=== PATIENT | female | born 1955 | race Caucasian/White ===

== ENCOUNTER 2016-09-29 11:06 | Inpatient (IN) | payer SELFPAY ==
[~2016-09-29] VITALS: Ht 167.6 cm; Wt 85.9 kg
[~2016-09-29 11:06] MED LIST: AMLO5TAB2 PO; GFNSR600 PO; HYDR5TAB27 PO; PRED20TA PO
[2016-09-29] MEDS ORDERED: DILTIAZEM BOLUS / DRIP IV STA ×2 (11:21→14:00)
[2016-09-29] MEDS ORDERED: DILTIAZEM HCL 5 MG/ML 5 ML VIAL ONE (11:26)
[2016-09-29] MEDS: DILTIAZEM HCL INJ 125 MG in DEXTROSE 5% 100ML IV PRN ×3 (11:44→19:30)
[2016-09-29] MEDS ORDERED: DILTIAZEM HCL 5 MG/ML 5 ML VIAL IV SCH (11:45)
[2016-09-29 11:53] LABS: BASO % 0.4 %; BASO ABS # 0.03 K/uL (0-0.2); COMPLETE YES; EOS % 0.9 %; HEMATOCRIT 49.3 % (37-47); IG% 0.2 %; LYMPH % 27.7 %; LYMPH ABS # 2.25 K/uL (1.2-3.4); MEAN CELL VOLUME 87.9 fL (80-100); MEAN CORPUSCULAR HEMOGLOBIN 29.8 pg (25-34); MEAN CORPUSCULAR HGB CONC 33.9 g/dl (32-36); MEAN PLATELET VOLUME 10.5 fL (7.4-10.4); NEUT % 62.8 %; PLATELET COUNT 351 K/uL (130-400); RED BLOOD COUNT 5.61 M/uL (4.2-5.4); WHITE BLOOD COUNT 8.11 K/uL (4.8-10.8)
--- NOTE | 2016-09-29 12:01 | DIAGNOSTIC IMAGING REPORT ---
CHEST ONE VIEW PORTABLE CLINICAL HISTORY: Evaluate Fever/Sepsis fever COMPARISON STUDY: 06/06/2012 FINDINGS: Mild cardiomegaly. Slight prominence of the pulmonary vasculature as well as central hilar shadows. No acute infiltrate. Diaphragms smooth. IMPRESSION: No acute process. Electronically signed by: Collin Beard M.D. 09/29/2016 12:00 PM Dictated Date/Time: 09/29/2016 11:59 AM
[2016-09-29 12:04] LABS: PARTIAL THROMBOPLASTIN RATIO 1.3; PROTHROMBIN TIME (PATIENT) 10.2 SECONDS (9.0-12.0)
[2016-09-29 12:09] LABS: ALT/SGPT 28 U/L (12-78); AST/SGOT 14 U/L (15-37); BLOOD UREA NITROGEN 14 mg/dl (7-18); BUN/CREATININE RATIO 16.1 (10-20); CALCIUM 9.2 mg/dl (8.5-10.1); CARBON DIOXIDE 25 mmol/L (21-32); CHLORIDE 106 mmol/L (98-107); CREATININE 0.85 mg/dl (0.60-1.20); GLUCOSE 101 mg/dl (70-99); POTASSIUM 4.1 mmol/L (3.5-5.1); SODIUM 139 mmol/L (136-145)
[2016-09-29 12:20] LABS: ALKALINE PHOSPHATASE 90 U/L (45-117); CKMB/CK RATIO 1.2 (0-3.0)
--- NOTE | 2016-09-29 13:41 | EMERGENCY ROOM VISIT NOTE ---
History Report prepared by Santoibletty: Wero Cheng Under the Supervision of: Dr. Rakesh Vo D.O. First contact with patient: 11:16 Chief Complaint: CARDIAC ASSESSMENT Stated Complaint: ELEVATED BLOOD PRESSURE History of Present Illness The patient is a 61 year old female who presents to the Emergency Room with complaints of persistent heart palpitations starting about 3 days ago. She states that she can "feel her heart beating." She also complains of feeling fatigued. She currently denies any pain. She denies any chest pain, shortness of breath, or any other complaints. The patient has a history of hypertension. She does not have a history of A-Fib. She does not smoke cigarettes or drink alcohol. Source of History: patient Onset: about 3 days ago Position: chest Symptom Intensity: No pain Quality: other (heart palpitations) Timing: other (persistent) Associated Symptoms: No chest pain, No SOB Review of Systems See HPI for pertinent positives & negatives. A total of 10 systems reviewed and were otherwise negative. Past Medical & Surgical Medical Problems: (1) Hypertension Surgical Problems: (1) H/O elbow surgery (2) History of Family History Hypertension Social History Smoking Status: Never Smoker Marital Status: Housing Status: lives with family Occupation Status: unemployed Current/Historical Medications Scheduled Amlodipine Besylate (Norvasc), 5 MG PO DAILY Allergies Coded Allergies: No Known Allergies (Unverified , 09/29/16) Physical Exam Vital Signs Date Time Temp Pulse Resp B/P (MAP) Pulse Ox O2 Delivery O2 Flow Rate FiO2 09/29/16 13:37 107 20 112/68 94 Room Air 09/29/16 13:21 115 20 118/82 95 Room Air 09/29/16 12:52 118 20 133/92 96 Room Air 09/29/16 12:44 114 30 132/77 95 09/29/16 12:35 122 16 117/89 96 Room Air 09/29/16 12:24 115 16 125/80 93 Room Air 09/29/16 12:16 122 19 111/92 95 Room Air 09/29/16 12:05 105 09/29/16 12:01 113 22 113/87 95 Room Air 09/29/16 11:58 120 25 124/97 96 Room Air 09/29/16 11:51 108 20 108/81 94 Room Air 09/29/16 11:47 115 21 119/85 95 Room Air 09/29/16 11:45 93 Room Air 09/29/16 11:45 95 18 116/91 93 Room Air 09/29/16 11:37 124 26 107/89 95 Room Air 09/29/16 11:35 93 Room Air 09/29/16 11:34 159 25 120/91 93 Room Air 09/29/16 11:09 36.5 73 20 151/96 98 Room Air Physical Exam CONSTITUTIONAL/VITAL SIGNS: Reviewed / noted above. GENERAL: Non-toxic in appearance. INTEGUMENTARY: Warm, dry, and [place]. HEAD: Normocephalic. EYES: without scleral icterus or trauma. ENT/OROPHARYNX: clear and moist. LYMPHADENOPATHY/NECK: Is supple without lymphadenopathy or meningismus. RESPIRATORY: Lungs clear and equal. CARDIOVASCULAR: Rapid rate and irregular rhythm. GI/ABDOMEN: Soft and nontender. No organomegaly or pulsatile mass. No rebound or guarding. Normal bowel sounds. EXTREMITIES: Warm and well perfused. BACK: No CVA tenderness. NEUROLOGICAL: Intact without focal deficits. PSYCHIATRIC: normal affect. MUSCULOSKELETAL: Normally developed with good muscle tone. Medical Decision & Procedures ER Provider Diagnostic Interpretation: X ray results and stated below per my interpretation and radiology interpretation. CHEST ONE VIEW PORTABLE CLINICAL HISTORY: Evaluate Fever/Sepsis fever COMPARISON STUDY: 06/06/2012 FINDINGS: Mild cardiomegaly. Slight prominence of the pulmonary vasculature as well as central hilar shadows. No acute infiltrate. Diaphragms smooth. IMPRESSION: No acute process. Electronically signed by: Collin Beard M.D. 09/29/2016 12:00 PM Dictated Date/Time: 09/29/2016 11:59 AM Laboratory Results 09/29/16 11:20 Red Blood Count 5.61, Mean Corpuscular Volume 87.9, Mean Corpuscular Hemoglobin 29.8, Mean Corpuscular Hemoglobin Concent 33.9, Mean Platelet Volume 10.5, Neutrophils (%) (Auto) 62.8, Lymphocytes (%) (Auto) 27.7, Monocytes (%) (Auto) 8.0, Eosinophils (%) (Auto) 0.9, Basophils (%) (Auto) 0.4, Neutrophils # (Auto) 5.09, Lymphocytes # (Auto) 2.25, Monocytes # (Auto) 0.65, Eosinophils # (Auto) 0.07, Basophils # (Auto) 0.03 09/29/16 11:20 Test 09/29/16 11:20 White Blood Count 8.11 K/uL (4.8-10.8) Red Blood Count 5.61 M/uL (4.2-5.4) Hemoglobin 16.7 g/dL (12.0-16.0) Hematocrit 49.3 % (37-47) Mean Corpuscular Volume 87.9 fL (80-100) Mean Corpuscular Hemoglobin 29.8 pg (25-34) Mean Corpuscular Hemoglobin Concent 33.9 g/dl (32-36) Platelet Count 351 K/uL (130-400) Mean Platelet Volume 10.5 fL (7.4-10.4) Neutrophils (%) (Auto) 62.8 % Lymphocytes (%) (Auto) 27.7 % Monocytes (%) (Auto) 8.0 % Eosinophils (%) (Auto) 0.9 % Basophils (%) (Auto) 0.4 % Neutrophils # (Auto) 5.09 K/uL (1.4-6.5) Lymphocytes # (Auto) 2.25 K/uL (1.2-3.4) Monocytes # (Auto) 0.65 K/uL (0.11-0.59) Eosinophils # (Auto) 0.07 K/uL (0-0.5) Basophils # (Auto) 0.03 K/uL (0-0.2) RDW Standard Deviation 43.7 fL (36.4-46.3) RDW Coefficient of Variation 13.5 % (11.5-14.5) Immature Granulocyte % (Auto) 0.2 % Immature Granulocyte # (Auto) 0.02 K/uL (0.00-0.02) Prothrombin Time 10.2 SECONDS (9.0-12.0) Prothromb Time International Ratio 1.0 (0.9-1.1) Activated Partial Thromboplast Time 32.7 SECONDS (21.0-31.0) Partial Thromboplastin Ratio 1.3 Anion Gap 8.0 mmol/L (3-11) Est Creatinine Clear Calc Drug Dose 80.1 ml/min Estimated GFR () 86.9 Estimated GFR (Non- 75.0 BUN/Creatinine Ratio 16.1 (10-20) Calcium Level 9.2 mg/dl (8.5-10.1) Total Bilirubin 0.6 mg/dl (0.2-1) Direct Bilirubin 0.1 mg/dl (0-0.2) Aspartate Amino Transf (AST/SGOT) 14 U/L (15-37) Alanine Aminotransferase (ALT/SGPT) 28 U/L (12-78) Alkaline Phosphatase 90 U/L (45-117) Total Creatine Kinase 43 U/L (26-192) Creatine Kinase MB 0.5 ng/ml (0.5-3.6) Creatine Kinase MB Ratio 1.2 (0-3.0) Troponin I < 0.015 ng/ml (0-0.045) Total Protein 8.0 gm/dl (6.4-8.2) Albumin 4.1 gm/dl (3.4-5.0) Lipase 200 U/L (73-393) Thyroid Stimulating Hormone (TSH) 1.360 uIu/ml (0.300-4.500) Medications Administered Medications (Trade) Dose Ordered Sig/Estelita Route Start Time Stop Time Status Last Admin Dose Admin Diltiazem HCl 125 mg/Dextrose 125 ml @ 0 mls/hr Q0M PRN IV 09/29/16 11:45 10/29/16 11:44 09/29/16 11:44 10 MLS/HR Diltiazem HCl (Cardizem Inj) 25 mg STK-MED ONCE .ROUTE 09/29/16 11:26 09/29/16 11:27 DC 09/29/16 11:26 20 MG ECG Indication: palpitations Rate (beats per minute): 156 Rhythm: atrial fibrillation Findings: no acute ischemic change, no ectopy ED Course 1116: Previous medical records were reviewed. The patient was evaluated in room C08. A complete history and physical examination was performed. 1145: Diltiazem HCl 125 mg/Dextrose 125 ml @ 0 mls/hr Protocol IV 1332: Heparin Sodium/Dextrose 1 ea N/A 1341: On reevaluation, the patient is resting comfortably. I discussed the results and findings with her. She verbalized agreement of the treatment plan. I spoke with JOSE Pineda of the [facility] Service. The patient will be evaluated for further management and care. Medical Decision Medication Reconciliation: I attest that I have personally reviewed the patient' s current medication list. the differential was considered includes acute myocardial infarction, acute coronary syndrome, myocarditis, pericarditis, pericardial effusions /tamponade, esophageal perforation, thoracic aortic dissection, pulmonary embolism, pneumonia, pneumothorax, pancreatitis, shingles, acute cholecystitis, perforated abdominal viscus. This is a 61-year-old female who presents to the ED with a chief complaint of palpitations. She states that she's had the symptoms for about 3 days. She denies any other significant symptoms. She does report being on a blood pressure pill that she cannot recall what it is. Her vital signs revealed tachycardia. Twelve-lead EKG reveals A. fib at a rate of 156. CBC and complete metabolic panel are normal, troponin is negative, TSH is normal. Chest x-ray is negative for acute disease. The patient was started on IV Cardizem drip and bolus. She was told the results. She is also been started on heparin drip and bolus. She'll be seen by the hospitalist for further evaluation and care. She denies any prior history of A. fib. Consults Time Called: 1335 Consulting Physician: [facility] Returned Call: 1341 I spoke with [facility]. Impression Primary Impression: Atrial fibrillation with rapid ventricular response Additional Impression: New onset a-fib Scribe Attestation The scribe's documentation has been prepared under my direction and personally reviewed by me in its entirety. I confirm that the note above accurately reflects all work, treatment, procedures, and medical decision making performed by me. Departure Information Dispostion Being Evaluated By Hospitalist Referrals Katiuska Vázquez M.D. (PCP) Patient Instructions My [facility] Problem Qualifiers
[2016-09-29] MEDS ORDERED: HEPARIN SOD 5000 UNIT/0.5 ML CARP ONE (13:49)
[2016-09-29] MEDS ORDERED: HEPARIN 25000 UNIT/500 ML D5W ONE (13:49)
[2016-09-29] MEDS ORDERED: ACETAMINOPHEN 325 MG TAB PO PRN (14:00)
[2016-09-29] MEDS ORDERED: ONDANSETRON INJ 2 MG/ML 2 ML VIAL IV PRN (14:00)
--- NOTE | 2016-09-29 14:14 | History and Physical ---
History & Physical Date & Time of Service: Sep 29, 2016 ~ 13:45 Chief Complaint: Palpitations Primary Care Physician: Katiuska Vázquez M.D. History of Present Illness 61 year old female who presents to the ER with reports of feeling her heart beating hard. Patient reports her symptoms have been going on for about 2 days. She reports she first noticed it when she was driving home from work. She reports symptoms have been persistent. She denies palpitations but reports rather a feeling of her heart beating hard. She denies chest pain and pressure. She noted some exertional shortness of breath when trying to climb stairs. She reports mild intermittent lightheadedness. She denies dizziness or syncopal events. No diaphoresis or nausea. Reports she has been feeling well recently. No fevers or chills. She denies abdominal pain, vomiting, and diarrhea. No urinary symptoms. In the ER, patient was found to be in a fib with RVR with rates in the 150s. Patient was bolused with 20mg IV cardizem and placed on a drip with improvement in heart rate. She was also started on Heparin drip. Labs are unremarkable. Past Medical/Surgical History Medical Problems: (1) Hypertension Status: Chronic Surgical Problems: (1) H/O elbow surgery Status: Resolved (2) History of Status: Resolved (3) History of tonsillectomy and adenoidectomy Status: Chronic (4) Hx of tubal ligation Status: Chronic Family History Diabetes mellitus SISTER SISTER negative for premature CAD or atrial fibrillation Social History Smoking Status: Never Smoker Alcohol Use: none Marital Status: Immunizations History of Influenza Vaccine: Yes Influenza Vaccine Date: Feb 27, 2014 History of Tetanus Vaccine?: Yes Tetanus Immunization Date: Jul 15, 2008 History of Pneumococcal: Yes Pneumococcal Date: May 27, 2012 Allergies Coded Allergies: No Known Allergies (Unverified , 09/29/16) Home Medications Scheduled Amlodipine Besylate (Norvasc), 5 MG PO DAILY Review of Systems ROS per HPI, all other systems reviewed and negative Physical Exam Vital Signs Date Time Temp Pulse Resp B/P (MAP) Pulse Ox O2 Delivery O2 Flow Rate FiO2 09/29/16 13:51 107 25 128/89 09/29/16 13:37 107 20 112/68 94 Room Air 09/29/16 13:21 115 20 118/82 95 Room Air 09/29/16 12:52 118 20 133/92 96 Room Air 09/29/16 12:44 114 30 132/77 95 09/29/16 12:35 122 16 117/89 96 Room Air 09/29/16 12:24 115 16 125/80 93 Room Air 09/29/16 12:16 122 19 111/92 95 Room Air 09/29/16 12:05 105 09/29/16 12:01 113 22 113/87 95 Room Air 09/29/16 11:58 120 25 124/97 96 Room Air 09/29/16 11:51 108 20 108/81 94 Room Air 09/29/16 11:47 115 21 119/85 95 Room Air 09/29/16 11:45 93 Room Air 09/29/16 11:45 95 18 116/91 93 Room Air 09/29/16 11:37 124 26 107/89 95 Room Air 09/29/16 11:35 93 Room Air 09/29/16 11:34 159 25 120/91 93 Room Air 09/29/16 11:09 36.5 73 20 151/96 98 Room Air General Appearance: no apparent distress Head: normocephalic Eyes: normal inspection ENT: hearing grossly normal Neck: supple, no JVD Respiratory/Chest: lungs clear, normal breath sounds, no respiratory distress Cardiovascular: no edema, + irregularly irregular (rate in the low 100s) Abdomen/GI: normal bowel sounds, non tender, soft Extremities/Musculoskelatal: normal inspection, no calf tenderness Neurologic/Psych: no motor/sensory deficits, alert, normal mood/affect, oriented x 3 Skin: normal color, warm/dry Diagnostics Laboratory Results Results Past 24 Hours Test 09/29/16 11:20 Range/Units White Blood Count 8.11 4.8-10.8 K/uL Red Blood Count 5.61 4.2-5.4 M/uL Hemoglobin 16.7 12.0-16.0 g/dL Hematocrit 49.3 37-47 % Mean Corpuscular Volume 87.9 80-100 fL Mean Corpuscular Hemoglobin 29.8 25-34 pg Mean Corpuscular Hemoglobin Concent 33.9 32-36 g/dl Platelet Count 351 130-400 K/uL Mean Platelet Volume 10.5 7.4-10.4 fL Neutrophils (%) (Auto) 62.8 % Lymphocytes (%) (Auto) 27.7 % Monocytes (%) (Auto) 8.0 % Eosinophils (%) (Auto) 0.9 % Basophils (%) (Auto) 0.4 % Neutrophils # (Auto) 5.09 1.4-6.5 K/uL Lymphocytes # (Auto) 2.25 1.2-3.4 K/uL Monocytes # (Auto) 0.65 0.11-0.59 K/uL Eosinophils # (Auto) 0.07 0-0.5 K/uL Basophils # (Auto) 0.03 0-0.2 K/uL RDW Standard Deviation 43.7 36.4-46.3 fL RDW Coefficient of Variation 13.5 11.5-14.5 % Immature Granulocyte % (Auto) 0.2 % Immature Granulocyte # (Auto) 0.02 0.00-0.02 K/uL Prothrombin Time 10.2 9.0-12.0 SECONDS Prothromb Time International Ratio 1.0 0.9-1.1 Activated Partial Thromboplast Time 32.7 21.0-31.0 SECONDS Partial Thromboplastin Ratio 1.3 Sodium Level 139 136-145 mmol/L Potassium Level 4.1 3.5-5.1 mmol/L Chloride Level 106 98-107 mmol/L Carbon Dioxide Level 25 21-32 mmol/L Anion Gap 8.0 3-11 mmol/L Blood Urea Nitrogen 14 7-18 mg/dl Creatinine 0.85 0.60-1.20 mg/dl Est Creatinine Clear Calc Drug Dose 80.1 ml/min Estimated GFR () 86.9 Estimated GFR (Non- 75.0 BUN/Creatinine Ratio 16.1 10-20 Random Glucose 101 70-99 mg/dl Calcium Level 9.2 8.5-10.1 mg/dl Total Bilirubin 0.6 0.2-1 mg/dl Direct Bilirubin 0.1 0-0.2 mg/dl Aspartate Amino Transf (AST/SGOT) 14 15-37 U/L Alanine Aminotransferase (ALT/SGPT) 28 12-78 U/L Alkaline Phosphatase 90 45-117 U/L Total Creatine Kinase 43 26-192 U/L Creatine Kinase MB 0.5 0.5-3.6 ng/ml Creatine Kinase MB Ratio 1.2 0-3.0 Troponin I < 0.015 0-0.045 ng/ml Total Protein 8.0 6.4-8.2 gm/dl Albumin 4.1 3.4-5.0 gm/dl Lipase 200 73-393 U/L Thyroid Stimulating Hormone (TSH) 1.360 0.300-4.500 uIu/ml Diagnostic Radiology CXR IMPRESSION: No acute process. Impression Assessment and Plan NEW ONSET ATRIAL FIBRILLATION WITH RVR - admit to tele - patient presenting with reports of feeling her heart beating hard x 3 days; in the ER, found to be in atrial fibrillation with rates in the 150s - s/p Cardizem 20mg IV bolus and placed on a drip with improvement in rates - started on Heparin gtt in ED; CHAD2S score 1 (HTN) - electrolytes and TSH noted to be WNL, will check Mg+; no signs of infection - initial troponin negative, will continue to cycle cardiac enzymes; check resting echo - cardio consult HTN - BP controlled while on cardizem gtt; will hold home dose amlodipine for now DVT PROPHYLAXIS - on Heparin gtt DISPO - In my clinical judgment this beneficiary meets acute admission criteria, established by [facility], that includes being hospitalized through two midnights. Attending Note: Patient is a 61 yr old female with PMH of HTN presents for evaluation of persistent palpitations and was found to have atrial fibrillation on EKG. Physical Exam: Vitals signs as noted above General Appearance:Moderately built and nourished, no apparent distress Head: normocephalic, Atraumatic Eyes: normal inspection, EOMI, PERRL Neck: supple, Trachea midline Respiratory/Chest: Normal breath sounds, + basal rales Cardiovascular:Irregularly irregular, No murmur Abdomen/GI:Soft, Non tender, Bowel sounds present Extremities/Musculoskelatal:normal inspection, no edema Neurologic/Psych:AAOX3, grossly no focal neurological deficits Skin:normal color,warm Assessment and Plan: New Onset Afib RVR: Continue Cardizem, Heparin ggt ECHO Trend cardiac enzymes I personally reviewed the record. Patient is interviewed and examined at bedside. Patient's care is coordinated with Kayleigh Valencia [employer]. Please refer to the documentation above for details of patient's presentation and for discussion of other issues. VTE Prophylaxis VTE Risk Assessment Done? Y/N: Yes Risk Level: Moderate Given or contraindicated: Other Anticoagulation
[2016-09-29 14:30] VITALS: O2SAT 95; Ht 167.6 cm; Wt 85.9 kg
--- NOTE | 2016-09-29 15:06 | Cardiology Consultation ---
Cardiology Consultation History of Present Illness Patient is a 61 year old female with no prior hx of heart disease presents with new onset atrial fib with RVR. 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 Past Medical/Surgical History Problem List: Medical Problems: (1) Hypertension (2) Hx of Sarcoid Surgical Problems: (1) H/O elbow surgery (2) History of (3) History of tonsillectomy and adenoidectomy (4) Hx of tubal ligation Family History Diabetes mellitus SISTER SISTER Social History Smoking Status: Never Smoker Alcohol Use: none Marital Status: Review Of Systems General: The patient denies weight change, night sweats, fever, chills. Head: The patient denies headache and prior head trauma. Cardiovascular: The patient denies chest pain or chest discomfort, dyspnea on exertion, palpitations, PND, orthopnea, edema, spontaneous shortness of breath, syncope and near syncope. Pulmonary: The patient denies cough, wheeze, pleurisy, hemoptysis, sputum, and excessive snoring. Gastrointestinal: The patient denies nausea, vomiting, diarrhea, constipation, bloating, hematemesis, hematochezia, and abdominal pain. Skin: The patient denies diaphoresis and rash. Musculoskeletal: The patient denies joint pain, joint swelling, myalgia, back pain, neck pain and prior injuries. Neurological: The patient denies prior stroke and seizures Allergies Coded Allergies: No Known Allergies (Unverified , 09/29/16) Medications Reported Home Medications Medications Dose Route/Sig Max Daily Dose Days Date Category Norvasc (Amlodipine Besylate) 5 Mg Tab 5 Mg PO DAILY 05/21/12 Rx Physical Exam Vital Signs (Last 8hrs): Last 8 Hrs Date Time Temp Pulse Resp B/P (MAP) Pulse Ox O2 Delivery O2 Flow Rate FiO2 09/29/16 14:30 95 Room Air 09/29/16 14:30 112 18 123/97 95 Room Air 09/29/16 13:51 107 25 128/89 09/29/16 13:37 107 20 112/68 94 Room Air 09/29/16 13:21 115 20 118/82 95 Room Air 09/29/16 12:52 118 20 133/92 96 Room Air 09/29/16 12:44 114 30 132/77 95 09/29/16 12:35 122 16 117/89 96 Room Air 09/29/16 12:24 115 16 125/80 93 Room Air 09/29/16 12:16 122 19 111/92 95 Room Air 09/29/16 12:05 105 09/29/16 12:01 113 22 113/87 95 Room Air 09/29/16 11:58 120 25 124/97 96 Room Air 09/29/16 11:51 108 20 108/81 94 Room Air 09/29/16 11:47 115 21 119/85 95 Room Air 09/29/16 11:45 93 Room Air 09/29/16 11:45 95 18 116/91 93 Room Air 09/29/16 11:37 124 26 107/89 95 Room Air 09/29/16 11:35 93 Room Air 09/29/16 11:34 159 25 120/91 93 Room Air 09/29/16 11:09 36.5 73 20 151/96 98 Room Air General Appearance: Alert and Oriented x3. NAD. Head: Normocephalic Atraumatic. Eyes: PERRLA, EOMI, conjunctiva and sclera clear Neck: Supple. No carotid bruits noted. No JVD. No HJD. Respiratory: Breath sounds clear to auscultation bilaterally. No w/r/r. Cardiovascular: irreg rate and rhythm. S1 and S2 noted. No murmurs, rubs, gallops. PMI non displace. Abdomen: Normal bowel sounds, soft nontender. no abdominal bruits. Extremities: No edema, no clubbing or cyanosis. distal pulses 2/4 bilaterally. Neuro: No focal deficits. Psychiatric: Normal affect. Data Last 24 Hours Test 09/29/16 11:20 White Blood Count 8.11 K/uL Red Blood Count 5.61 M/uL Hemoglobin 16.7 g/dL Hematocrit 49.3 % Mean Corpuscular Volume 87.9 fL Mean Corpuscular Hemoglobin 29.8 pg Mean Corpuscular Hemoglobin Concent 33.9 g/dl Platelet Count 351 K/uL Mean Platelet Volume 10.5 fL Neutrophils (%) (Auto) 62.8 % Lymphocytes (%) (Auto) 27.7 % Monocytes (%) (Auto) 8.0 % Eosinophils (%) (Auto) 0.9 % Basophils (%) (Auto) 0.4 % Neutrophils # (Auto) 5.09 K/uL Lymphocytes # (Auto) 2.25 K/uL Monocytes # (Auto) 0.65 K/uL Eosinophils # (Auto) 0.07 K/uL Basophils # (Auto) 0.03 K/uL RDW Standard Deviation 43.7 fL RDW Coefficient of Variation 13.5 % Immature Granulocyte % (Auto) 0.2 % Immature Granulocyte # (Auto) 0.02 K/uL Prothrombin Time 10.2 SECONDS Prothromb Time International Ratio 1.0 Activated Partial Thromboplast Time 32.7 SECONDS Partial Thromboplastin Ratio 1.3 Sodium Level 139 mmol/L Potassium Level 4.1 mmol/L Chloride Level 106 mmol/L Carbon Dioxide Level 25 mmol/L Anion Gap 8.0 mmol/L Blood Urea Nitrogen 14 mg/dl Creatinine 0.85 mg/dl Est Creatinine Clear Calc Drug Dose 80.1 ml/min Estimated GFR () 86.9 Estimated GFR (Non- 75.0 BUN/Creatinine Ratio 16.1 Random Glucose 101 mg/dl Calcium Level 9.2 mg/dl Magnesium Level 2.3 mg/dl Total Bilirubin 0.6 mg/dl Direct Bilirubin 0.1 mg/dl Aspartate Amino Transf (AST/SGOT) 14 U/L Alanine Aminotransferase (ALT/SGPT) 28 U/L Alkaline Phosphatase 90 U/L Total Creatine Kinase 43 U/L Creatine Kinase MB 0.5 ng/ml Creatine Kinase MB Ratio 1.2 Troponin I < 0.015 ng/ml Total Protein 8.0 gm/dl Albumin 4.1 gm/dl Lipase 200 U/L Thyroid Stimulating Hormone (TSH) 1.360 uIu/ml Imaging: EKG: Telemetry reviewed: Assessment & Plan Impression: New onset atrial fib with RVR Mild Hypertension Hx of sarcoid Recommendation: Admit to telemetry heparin diltiazem drip echo trop.
[2016-09-29 15:12] VITALS: BP 131/96; PULSE 110; TEMP 36.9; O2SAT 97
[2016-09-29 19:25] VITALS: BP 114/78; PULSE 95; TEMP 36.5; O2SAT 96
[2016-09-29 20:46] LABS: PARTIAL THROMBOPLASTIN RATIO 2.1
[2016-09-29 22:59] VITALS: BP 103/72; PULSE 88; TEMP 36.4; O2SAT 96
[2016-09-30] MEDS: DILTIAZEM HCL INJ 125 MG in DEXTROSE 5% 100ML IV PRN ×3 (03:08→22:43)
[2016-09-30 03:38] VITALS: BP 103/73; PULSE 62; TEMP 36.4; O2SAT 94
[2016-09-30] MEDS ORDERED: PNEUMOCOCCAL POLYSACCHARIDES 25 MCG/0.5 ML VIAL/SYR IM. ONE (08:00)
[2016-09-30] MEDS ORDERED: PNEUMOCOCCAL ADMINISTRATION CHARGE ONE (08:00)
[2016-09-30 08:13] VITALS: BP 126/88; PULSE 80; TEMP 36.5; O2SAT 94
[2016-09-30 08:23] LABS: HEMATOCRIT 46.6 % (37-47); MEAN CELL VOLUME 87.6 fL (80-100); MEAN PLATELET VOLUME 9.8 fL (7.4-10.4); PLATELET COUNT 323 K/uL (130-400); RED BLOOD COUNT 5.32 M/uL (4.2-5.4); WHITE BLOOD COUNT 6.12 K/uL (4.8-10.8)
[2016-09-30 08:37] LABS: PARTIAL THROMBOPLASTIN RATIO 2.1
[2016-09-30 08:51] LABS: BUN/CREATININE RATIO 15.6 (10-20); CALCIUM 8.8 mg/dl (8.5-10.1); CREATININE 0.75 mg/dl (0.60-1.20); POTASSIUM 3.8 mmol/L (3.5-5.1)
--- NOTE | 2016-09-30 09:01 | ECHOCARDIOGRAM REPORT ---
*NOTICE TO RECEIVING CONSTITUTION PARTY AGENCY This information is strictly Confidential and protected under [place] law. [place] law prohibits you from making any further disclosure of this information unless further disclosure is expressly permitted by the written consent of the person to whom it pertains or is authorized by law. A general authorization for the release of medical or other information is not sufficient for this purpose. Hospital accepts no responsibility if the information is made available to any other person, INCLUDING THE PATIENT. Interpretation Summary * Name: QUINTEN WEN I Study Date: 09/30/2016 06:52 AM BP: 103/73 mmHg * Patient Location: C.2T\S\S243\S\1 HR: 74 * : 1955 (M/d/yyyy) Gender: Female Height: 66 in * Age: 61 yrs Ethnicity: CA Weight: 196 lb * Ordering Physician: Kayleigh Valencia * Referring Physician: UNKNOWN * Performed By: Fermín Bear RDCS * * Reason For Study: A-fib w/RVR * BSA: 2.0 m2 * -- Conclusions -- * Normal LV chamber size and wall thickness. * Normal LV systolic function, EF 65-70%. * No segmental left ventricular wall motion abnormalities are noted. * No significant valvular pathology. Procedure Details * A complete two-dimensional transthoracic echocardiogram was performed (2D, M-mode, Doppler and color flow Doppler). * The study was technically adequate. Left Ventricle * The left ventricle is normal in size. * There is normal left ventricular wall thickness. * Left ventricular systolic function is normal. * No segmental left ventricular wall motion abnormalities are noted. * Ejection Fraction = 65-70%. * The left ventricular wall motion is normal. Right Ventricle * The right ventricular cavity size is normal (basal dimension <4.2 cm in right ventricular apical 4-chamber view). * The right ventricular systolic function is normal as assessed by tricuspid annular plane systolic excursion (TAPSE) (normal >1.5 cm). Atria * The left atrial size is normal. * Right atrial size is normal. * No ASD detected; PFO is not assessed. Mitral Valve * The mitral valve is normal in structure and function. Tricuspid Valve * The tricuspid valve is normal in structure and function. Aortic Valve * The aortic valve is normal in structure and function. Pulmonic Valve * The pulmonary valve is not well seen, but the Doppler examination is normal without significant regurgitation or stenosis. Great Vessels * The aortic root is normal size. Pericardium/Pleural * There is no pericardial effusion. MMode 2D Measurements and Calculations IVSd 0.95 cm IVSs 1.3 cm LVIDd 3.9 cm LVIDs 2.3 cm LVPWd 0.95 cm LVPWs 1.4 cm IVS/LVPW 10 FS 40.1 % EDV(Teich) 65.2 ml ESV(Teich) 18.6 ml EF(Teich) 71.5 % EDV(cubed) 58.6 ml ESV(cubed) 12.6 ml EF(cubed) 78.5 % % IVS thick 38.8 % % LVPW thick 46.2 % LV mass(C)d 113.1 grams LV mass(C)dI 57.0 grams/m\S\2 LV mass(C)s 96.5 grams LV mass(C)sI 48.7 grams/m\S\2 SV(Teich) 46.6 ml SI(Teich) 23.5 ml/m\S\2 SV(cubed) 46.0 ml SI(cubed) 23.2 ml/m\S\2 Ao root diam 3.0 cm Ao root area 7.0 cm\S\2 ACS 2.0 cm LA dimension 3.8 cm asc Aorta Diam 3.4 cm LA/Ao 1.3 LVOT diam 2.0 cm LVOT area 3.1 cm\S\2 LVAd ap4 25.8 cm\S\2 LVLd ap4 7.9 cm EDV(MOD-sp4) 67.6 ml LVAs ap4 11.5 cm\S\2 LVLs ap4 6.2 cm ESV(MOD-sp4) 19.5 ml EF(MOD-sp4) 71.2 % LVAd ap2 24.1 cm\S\2 LVLd ap2 8.1 cm EDV(MOD-sp2) 61.6 ml LVAs ap2 11.2 cm\S\2 LVLs ap2 6.3 cm ESV(MOD-sp2) 17.5 ml EF(MOD-sp2) 71.6 % SV(MOD-sp4) 48.1 ml SI(MOD-sp4) 24.3 ml/m\S\2 SV(MOD-sp2) 44.1 ml SI(MOD-sp2) 22.2 ml/m\S\2 Doppler Measurements and Calculations MV E max nuruly 104.2 cm/sec MV dec time 0.18 sec Ao V2 max 155.6 cm/sec Ao max PG 9.7 mmHg Ao max PG (full) 4.4 mmHg JUAN(V,A) 2.3 cm\S\2 JUAN(V,D) 2.3 cm\S\2 LV V1 max PG 5.3 mmHg LV V1 max 114.7 cm/sec PA V2 max 79.5 cm/sec PA max PG 2.5 mmHg
[2016-09-30] MEDS: HEPARIN 25,000 UNIT/500ML D5W 500 ML IV PRN (10:23)
[2016-09-30] MEDS ORDERED: DILTIAZEM HCL 180 MG CAPCR PO ONE (11:52)
[2016-09-30 12:00] VITALS: BP 120/82; PULSE 91; TEMP 36.5; O2SAT 96
--- NOTE | 2016-09-30 12:00 | Cardiology Follow-Up ---
Subjective Subjective Date of Service: Sep 30, 2016. Pt evaluation today including: conversation w/ patient, physical exam, chart review, lab review, review of studies, review of inpatient medication list Additional Details: Pt seen and examined, states that she feels ok at rest without palpitations, but palpitations resume with activity. Denies cp, sob, lightheadedness or dizziness. Tele reviewed: afib in 100's Review of Systems Respiratory: + dyspnea on exertion, No see HPI, No cough, No sputum, No wheezing, No shortness of breath, No dyspnea at rest, No hemoptysis, No problem reported Cardiac: + palpitations, No see HPI, No chest pain, No orthopnea, No PND, No edema, No claudication, No problem reported Objective Vital Signs Last Vital Signs Documentation Date Time Temp Pulse Resp B/P (MAP) Pulse Ox O2 Delivery O2 Flow Rate FiO2 09/30/16 08:13 36.5 80 20 126/88 (101) 94 Room Air Physical Exam: General Appearance: WD/WN, no apparent distress Eyes: bilateral eyes normal inspection, bilateral eyes PERRL, bilateral eyes EOMI ENT: normal ENT inspection, hearing grossly normal, pharynx normal Neck: supple, no adenopathy, thyroid normal, no JVD, no carotid bruits, trachea midline Respiratory/Chest: chest non-tender, lungs clear, normal breath sounds, no respiratory distress, no accessory muscle use Cardiovascular: no edema, no gallop, no JVD, no murmur, + irregularly irregular Abdomen: normal bowel sounds, non tender, soft, no organomegaly Extremities: normal inspection, no pedal edema, no calf tenderness 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 atrial fibrillation new onset unclear duration patient's main concern is financial, does not have health insurance recommend EDIN guided cardioversion, will tentatively plan to perform in AM to hasten discharge only if nursing coverage is available will ask case management to aid in insurance coverage usp anticoagulant will be dictated by cost I do not know if coumadin with blood test would be cheaper than NOAC will start coumadin today to facilitate will attempt to wean off cardizem gtt, start po cardizem CD npo after midnight
--- NOTE | 2016-09-30 15:11 | Progress Note ---
Internal Med Progress Note Date of Service: Sep 30, 2016. Provider Documentation: SUBJECTIVE: Patient is sitting comfortably in her bed and is in no distress. Feeling better. Denies any chest pain/pressure and has few palpitations since has come to hospital. No other new change or complaint. OBJECTIVE: Vital Signs-as noted below Examination: General Appearance: Alert/Awake sitting in her bed in no apparent distress Head: normocephalic Eyes: normal inspection ENT: hearing grossly normal. ears, Nose & Throat are normal looking. Neck: supple, midline trachea, No JVD Respiratory/Chest: lungs clear, normal breath sounds, no respiratory distress Cardiovascular: no edema, + irregularly irregular (rate in the low 80s) Abdomen/GI: normal bowel sounds, non tender, soft Extremities/Musculoskeletal: normal inspection, no calf tenderness Neurologic/Psych: no motor/sensory deficits, alert, normal mood/affect, oriented x 3 Skin: normal color, warm/dry Lab data as noted below. ASSESSMENT & PLAN: Echocardiogram (09/30/2016) Normal LV chamber size and wall thickness. Normal LV systolic function, EF 65-70%. No segmental left ventricular wall motion abnormalities are noted. No significant valvular pathology. New Onset Atrial Fibrillation with RVR: Clinically & hemodynamically doing well. HR is better controlled today. Patient presenting with reports of feeling her heart beating hard x 3 days; in the ER, found to be in atrial fibrillation with rates in the 150s -s/p Cardizem 20mg IV bolus and placed on a drip with improvement in rates -Continue Heparin gtt in ED; CHAD2S score 1 (HTN) -Electrolytes and TSH noted to be WNL, -Serial Troponin X 3 is negative -Reviewed Normal findings of Echocardiogram -Reviewed cardiology consultation. Thanks for input.Discussed with Dr. Irvin. -Coumadin has been started. -Likely cardioversion tomorrow Hypertension: BP controlled while on cardizem gtt; will hold home dose amlodipine for now DVT Prophylaxis: I/V Heparin. Code Status: Full Code Disposition: Discharge once is clinically stable. Vital Signs: Date Time Temp Pulse Resp B/P (MAP) Pulse Ox O2 Delivery O2 Flow Rate FiO2 09/30/16 12:00 36.5 91 20 120/82 (95) 96 Room Air 09/30/16 12:00 Room Air 09/30/16 08:13 36.5 80 20 126/88 (101) 94 Room Air 09/30/16 08:00 Room Air 09/30/16 04:00 Room Air 09/30/16 03:38 36.4 62 18 103/73 (83) 94 Room Air 09/30/16 00:00 Room Air 09/29/16 22:59 36.4 88 18 103/72 (82) 96 Room Air 09/29/16 20:00 Room Air 09/29/16 19:25 36.5 95 22 114/78 (90) 96 Room Air 09/29/16 16:00 Room Air Lab Results: Results Past 24 Hours Test 09/29/16 17:00 09/29/16 17:02 09/29/16 20:07 09/29/16 22:55 Range/Units Creatine Kinase MB Ratio 0-3.0 Creatine Kinase MB < 0.5 < 0.5 0.5-3.6 ng/ml Troponin I < 0.015 < 0.015 0-0.045 ng/ml Activated Partial Thromboplast Time 54.1 21.0-31.0 SECONDS Partial Thromboplastin Ratio 2.1 Test 09/30/16 07:37 Range/Units White Blood Count 6.12 4.8-10.8 K/uL Red Blood Count 5.32 4.2-5.4 M/uL Hemoglobin 14.9 12.0-16.0 g/dL Hematocrit 46.6 37-47 % Mean Corpuscular Volume 87.6 80-100 fL Mean Corpuscular Hemoglobin 28.0 25-34 pg Mean Corpuscular Hemoglobin Concent 32.0 32-36 g/dl RDW Standard Deviation 43.3 36.4-46.3 fL RDW Coefficient of Variation 13.4 11.5-14.5 % Platelet Count 323 130-400 K/uL Mean Platelet Volume 9.8 7.4-10.4 fL Activated Partial Thromboplast Time 53.3 21.0-31.0 SECONDS Partial Thromboplastin Ratio 2.1 Sodium Level 139 136-145 mmol/L Potassium Level 3.8 3.5-5.1 mmol/L Chloride Level 107 98-107 mmol/L Carbon Dioxide Level 25 21-32 mmol/L Anion Gap 7.0 3-11 mmol/L Blood Urea Nitrogen 12 7-18 mg/dl Creatinine 0.75 0.60-1.20 mg/dl Est Creatinine Clear Calc Drug Dose 89.5 ml/min Estimated GFR () 101.1 Estimated GFR (Non- 87.2 BUN/Creatinine Ratio 15.6 10-20 Random Glucose 126 70-99 mg/dl Calcium Level 8.8 8.5-10.1 mg/dl
[2016-09-30 15:23] VITALS: BP 105/74; PULSE 87; TEMP 36.4; O2SAT 95
[2016-09-30] MEDS: WARFARIN SOD 5 MG TAB PO SCH (16:46)
[2016-09-30 19:24] VITALS: BP 135/92; PULSE 94; TEMP 36.4; O2SAT 93
[2016-09-30 23:55] VITALS: BP 105/77; PULSE 72; TEMP 36.8; O2SAT 93
[2016-10-01] VITALS (15 sets, daily range): BP systolic 96–153; BP diastolic 65–132; PULSE 80–164; TEMP 36.3–36.8; O2SAT 91–97
[2016-10-01] MEDS: HEPARIN 25,000 UNIT/500ML D5W 500 ML IV PRN (06:06)
[2016-10-01 07:15] LABS: BASO % 0.3 %; BASO ABS # 0.02 K/uL (0-0.2); COMPLETE YES; EOS % 1.5 %; HEMATOCRIT 44.2 % (37-47); IG% 0.2 %; LYMPH % 26.5 %; LYMPH ABS # 1.58 K/uL (1.2-3.4); MEAN CELL VOLUME 87.2 fL (80-100); MEAN CORPUSCULAR HEMOGLOBIN 29.6 pg (25-34); MEAN CORPUSCULAR HGB CONC 33.9 g/dl (32-36); MEAN PLATELET VOLUME 9.8 fL (7.4-10.4); MONO % 9.6 %; NEUT % 61.9 %; PLATELET COUNT 302 K/uL (130-400); RED BLOOD COUNT 5.07 M/uL (4.2-5.4); WHITE BLOOD COUNT 5.96 K/uL (4.8-10.8)
[2016-10-01 07:37] LABS: INR 1.1 (0.9-1.1); PARTIAL THROMBOPLASTIN RATIO 2.5; PROTHROMBIN TIME (PATIENT) 11.3 SECONDS (9.0-12.0)
[2016-10-01 07:47] LABS: BUN/CREATININE RATIO 15.8 (10-20); CALCIUM 8.8 mg/dl (8.5-10.1); CREATININE 0.75 mg/dl (0.60-1.20); MAGNESIUM 2.1 mg/dl (1.8-2.4); POTASSIUM 3.8 mmol/L (3.5-5.1)
[2016-10-01] MEDS: DILTIAZEM HCL 180 MG CAPCR PO SCH (08:06)
[2016-10-01] MEDS ORDERED: GLYCOPYRROLATE INJ 0.2 MG/ML VIAL IM ONE (10:15)
[2016-10-01] MEDS ORDERED: FENTANYL CITRATE INJ 50 MCG/1 ML 2 ML VIAL ONE (10:33)
[2016-10-01] MEDS ORDERED: MIDAZOLAM HCL 5 MG/ML 1 ML VIAL ONE ×2 (10:34→11:03)
--- NOTE | 2016-10-01 10:47 | Procedure Note ---
Pre-Mod Sedation Assessment General Date of Moderate Sedation: Oct 01, 2016. Vital Signs: Vital Signs Past 12 Hours Date Time Temp Pulse Resp B/P (MAP) Pulse Ox O2 Delivery O2 Flow Rate FiO2 10/01/16 08:00 Room Air 10/01/16 07:48 36.3 84 20 123/76 (92) 97 Room Air 10/01/16 04:00 Room Air 10/01/16 03:13 36.5 80 18 105/65 (78) 95 Room Air 10/01/16 00:00 Room Air 09/30/16 23:55 36.8 72 16 105/77 (86) 93 Room Air Review Cardiovascular: no edema, no gallop, no JVD, no murmur, normal peripheral pulses, + irregularly irregular Abdomen: normal bowel sounds, non tender, soft, no organomegaly, no pulsatile mass Lungs: chest non-tender, lungs clear, normal breath sounds, no respiratory distress, no accessory muscle use Airway Class: II Pre-Sedation Airway Assessment Oral Cavity: Dentures Smoking Status: Never Smoker Notes The planned sedation has been discussed with the patient and consent obtained. I have identified the patient, determined the appropriateness of sedation and have assessed the patient immediately prior to the procedure. All medicine(s) and interventions are by my order.
[2016-10-01] MEDS ORDERED: METOPROLOL TARTRATE 1 MG/ML VIAL IV STA (11:24)
[2016-10-01] MEDS ORDERED: METOPROLOL TARTRATE 1 MG/ML VIAL ONE (11:24)
--- NOTE | 2016-10-01 11:24 | Cardiology Follow-Up ---
Subjective Subjective Date of Service: Oct 01, 2016. Pt evaluation today including: conversation w/ patient, physical exam, chart review, lab review, review of studies, review of inpatient medication list Additional Details: Pt seen and examined, states that she feels well. Denies cp, sob, palpitations, lightheadedness, dizziness or syncope. Tele reviewed: atrial fibrillation, rate controlled Review of Systems Respiratory: + dyspnea on exertion, No see HPI, No cough, No sputum, No wheezing, No shortness of breath, No dyspnea at rest, No hemoptysis, No problem reported Cardiac: + palpitations, No see HPI, No chest pain, No orthopnea, No PND, No edema, No claudication, No problem reported Objective Vital Signs Last Vital Signs Documentation Date Time Temp Pulse Resp B/P (MAP) Pulse Ox O2 Delivery O2 Flow Rate FiO2 10/01/16 08:00 Room Air 10/01/16 07:48 36.3 84 20 123/76 (92) 97 Physical Exam: General Appearance: WD/WN, no apparent distress Eyes: bilateral eyes normal inspection, bilateral eyes PERRL, bilateral eyes EOMI ENT: normal ENT inspection, hearing grossly normal, pharynx normal Neck: supple, no adenopathy, thyroid normal, no JVD, no carotid bruits, trachea midline Respiratory/Chest: chest non-tender, lungs clear, normal breath sounds, no respiratory distress, no accessory muscle use Cardiovascular: no edema, no gallop, no JVD, no murmur, + tachycardia, + irregularly irregular Abdomen: normal bowel sounds, non tender, soft, no organomegaly Extremities: normal inspection, no pedal edema, no calf tenderness 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 atrial fibrillation new onset unclear duration patient's main concern is financial, does not have health insurance EDIN showed no SHARRI thrombus cardioversion successful patient choose coumadin due to cost will need 3 days of home lovenox as a bridge coumadin clinic f/u as outpatient will d/c to home on cardizem and metoprolol f/u with cardiology in 1 month no hot liquids or scratchy foods for 24 hours ok to d/c this PM once recovered and gag reflex returns
--- NOTE | 2016-10-01 11:27 | [facility] Post Operative Brief Note ---
Immediate Operative Summary Operative Date Oct 01, 2016. Pre-Operative Diagnosis atrial fibrillation Post-Operative Diagnosis paroxysmal atrial fibrillation Procedure(s) Performed EDIN/cardioversion Surgeon Albaro Front End Developer Surgeon(s) Mary REEVES Estimated Blood Loss none Findings no left atrial appendage thrombus start time:1055, end time 1115 moderate sedation achieved with versed 3mg and fentanyl 75mg Specimens none Complication(s) None Disposition Surgical ICU
--- NOTE | 2016-10-01 11:28 | Procedure Note ---
Post-Mod Sedation Assessment General Date of Moderate Sedation Oct 01, 2016. Vital Signs: Vital Signs Past 12 Hours Date Time Temp Pulse Resp B/P (MAP) Pulse Ox O2 Delivery O2 Flow Rate FiO2 10/01/16 08:00 Room Air 10/01/16 07:48 36.3 84 20 123/76 (92) 97 Room Air 10/01/16 04:00 Room Air 10/01/16 03:13 36.5 80 18 105/65 (78) 95 Room Air 10/01/16 00:00 Room Air 09/30/16 23:55 36.8 72 16 105/77 (86) 93 Room Air Review - Discharge Criteria Vital Signs Stable: Yes Alert/Oriented/Conversant: Yes Returned to Baseline Mental St: Yes Nausea Absent/Minimal: Yes Pain/Discomfort/Absent/Minimal: Yes Normal/Baseline Respirations: Yes Active Bleeding?: No Pt Received D/C Instructions: No Prescriptions Given: None
[2016-10-01] MEDS ORDERED: METOPROLOL SUCC 25MG EXT REL TAB PO ONE (12:08)
--- NOTE | 2016-10-01 12:36 | Progress Note ---
Internal Med Progress Note Date of Service: Oct 01, 2016. Provider Documentation: SUBJECTIVE: Patient is sitting comfortably in her bed and is in no distress. Feeling better. Denies any chest pain/pressure and has few palpitations since has come to hospital. No other new change or complaint. Will be going for EDIN & Cardioversion later today. OBJECTIVE: Vital Signs-as noted below Examination: General Appearance: Alert/Awake sitting in her bed in no apparent distress Head: normocephalic Eyes: normal inspection ENT: hearing grossly normal. ears, Nose & Throat are normal looking. Neck: supple, midline trachea, No JVD Respiratory/Chest: lungs clear, normal breath sounds, no respiratory distress Cardiovascular: no edema, + irregularly irregular (rate in the low 80s) Abdomen/GI: normal bowel sounds, non tender, soft Extremities/Musculoskeletal: normal inspection, no calf tenderness Neurologic/Psych: no motor/sensory deficits, alert, normal mood/affect, oriented x 3 Skin: normal color, warm/dry Lab data as noted below. ASSESSMENT & PLAN: Echocardiogram (09/30/2016) Normal LV chamber size and wall thickness. Normal LV systolic function, EF 65-70%. No segmental left ventricular wall motion abnormalities are noted. No significant valvular pathology. New Onset Atrial Fibrillation with RVR: Clinically & hemodynamically doing well. HR is better controlled today. Patient presenting with reports of feeling her heart beating hard x 3 days; in the ER, found to be in atrial fibrillation with rates in the 150s -s/p Cardizem 20mg IV bolus and placed on a drip with improvement in rates -Continue Heparin gtt in ED; CHAD2S score 1 (HTN) -Electrolytes and TSH noted to be WNL, -Serial Troponin X 3 is negative -Reviewed Normal findings of Echocardiogram -Reviewed cardiology consultation. Thanks for input.Discussed with Dr. Irvin. -Coumadin has been started. -Likely EDIN & Cardioversion later today Hypertension: BP controlled while on cardizem gtt; will hold home dose amlodipine for now DVT Prophylaxis: I/V Heparin. Code Status: Full Code Disposition: Discharge once is clinically stable & is cleared by cardiology.. Vital Signs: Date Time Temp Pulse Resp B/P (MAP) Pulse Ox O2 Delivery O2 Flow Rate FiO2 10/01/16 12:01 36.5 98 20 112/74 (87) 91 Nasal Cannula 2.0 10/01/16 11:35 88 96/69 (78) 94 Nasal Cannula 2.0 10/01/16 11:30 102 101/75 (84) 94 Nasal Cannula 2.0 10/01/16 11:28 114 106/74 10/01/16 11:25 112 103/70 (81) 95 Nasal Cannula 2.0 10/01/16 11:20 111 110/75 (87) 96 Nasal Cannula 6.0 10/01/16 11:15 127 113/89 (97) 95 Nasal Cannula 6.0 10/01/16 11:08 117 123/101 (108) 96 Nasal Cannula 6.0 10/01/16 11:00 164 153/132 (139) 96 Nasal Cannula 5.0 10/01/16 10:55 162 18 153/132 (139) 93 Nasal Cannula 4.0 10/01/16 10:15 36.8 118 18 126/102 (110) 96 Nasal Cannula 2.0 10/01/16 08:00 Room Air 10/01/16 07:48 36.3 84 20 123/76 (92) 97 Room Air 10/01/16 04:00 Room Air 10/01/16 03:13 36.5 80 18 105/65 (78) 95 Room Air 10/01/16 00:00 Room Air 09/30/16 23:55 36.8 72 16 105/77 (86) 93 Room Air 09/30/16 20:00 Room Air 09/30/16 19:24 36.4 94 20 135/92 (106) 93 Room Air 09/30/16 16:00 Room Air 09/30/16 15:23 36.4 87 20 105/74 (84) 95 Lab Results: Results Past 24 Hours Test 10/01/16 06:50 Range/Units White Blood Count 5.96 4.8-10.8 K/uL Red Blood Count 5.07 4.2-5.4 M/uL Hemoglobin 15.0 12.0-16.0 g/dL Hematocrit 44.2 37-47 % Mean Corpuscular Volume 87.2 80-100 fL Mean Corpuscular Hemoglobin 29.6 25-34 pg Mean Corpuscular Hemoglobin Concent 33.9 32-36 g/dl Platelet Count 302 130-400 K/uL Mean Platelet Volume 9.8 7.4-10.4 fL Neutrophils (%) (Auto) 61.9 % Lymphocytes (%) (Auto) 26.5 % Monocytes (%) (Auto) 9.6 % Eosinophils (%) (Auto) 1.5 % Basophils (%) (Auto) 0.3 % Neutrophils # (Auto) 3.69 1.4-6.5 K/uL Lymphocytes # (Auto) 1.58 1.2-3.4 K/uL Monocytes # (Auto) 0.57 0.11-0.59 K/uL Eosinophils # (Auto) 0.09 0-0.5 K/uL Basophils # (Auto) 0.02 0-0.2 K/uL RDW Standard Deviation 43.1 36.4-46.3 fL RDW Coefficient of Variation 13.5 11.5-14.5 % Immature Granulocyte % (Auto) 0.2 % Immature Granulocyte # (Auto) 0.01 0.00-0.02 K/uL Prothrombin Time 11.3 9.0-12.0 SECONDS Prothromb Time International Ratio 1.1 0.9-1.1 Activated Partial Thromboplast Time 64.1 21.0-31.0 SECONDS Partial Thromboplastin Ratio 2.5 Sodium Level 139 136-145 mmol/L Potassium Level 3.8 3.5-5.1 mmol/L Chloride Level 107 98-107 mmol/L Carbon Dioxide Level 26 21-32 mmol/L Anion Gap 6.0 3-11 mmol/L Blood Urea Nitrogen 12 7-18 mg/dl Creatinine 0.75 0.60-1.20 mg/dl Est Creatinine Clear Calc Drug Dose 89.5 ml/min Estimated GFR () 101.1 Estimated GFR (Non- 87.2 BUN/Creatinine Ratio 15.8 10-20 Random Glucose 109 70-99 mg/dl Calcium Level 8.8 8.5-10.1 mg/dl Magnesium Level 2.1 1.8-2.4 mg/dl
--- NOTE | 2016-10-01 13:16 | TEE ---
*NOTICE TO RECEIVING LIBERTARIAN AGENCY This information is strictly Confidential and protected under [place] law. [place] law prohibits you from making any further disclosure of this information unless further disclosure is expressly permitted by the written consent of the person to whom it pertains or is authorized by law. A general authorization for the release of medical or other information is not sufficient for this purpose. Hospital accepts no responsibility if the information is made available to any other person, INCLUDING THE PATIENT. Interpretation Summary * Name: QUINTEN WEN I Study Date: 10/01/2016 10:50 AM BP: 129/97 mmHg * Patient Location: C.2T\S\S243\S\1 HR: 127 * : 1955 (M/d/yyyy) Gender: Female Height: 66 in * Age: 61 yrs Ethnicity: CA Weight: 190 lb * Ordering Physician: Navjot Irvin * Referring Physician: UNKNOWN * Performed By: Telma Julian RCS * * Reason For Study: AFib, Cardioversion * BSA: 2.0 m2 * -- Conclusions -- * A multifrequency, multiplane transesopheageal echocardiographic endoscope was inserted and manipulated in the standard fashion to achieve multiplane views. * No left atrial thrombus present. * Mild mitral regurgitation. * Normal biatrial size. Procedure Details * The transesophageal portion of this study was personally supervised by the undersigned interpreting physician. * The transesophageal probe was passed without difficulty. * EDIN probe #3 utilized for procedure. Time out Conducted at 10:55. Probe Inserted at 11:00. Probe Out time 11:16. * A multifrequency, multiplane transesopheageal echocardiographic endoscope was inserted and manipulated in the standard fashion to achieve multiplane views. * The posterior oropharynx was anesthetized using a topical anesthetic spray. A bite guard was inserted. * Fentanyl 50 mcg was administered for procedural sedation. * Time out was conducted by the physician, nurse, and information technology specialist with positive identification of patient and procedure. * The study was performed at bedside. * There were no complications. * A 2D transesophageal echocardiogram with Doppler and color flow Doppler was performed. * A 2D transesophageal echocardiogram was performed. * A 2D transesophageal echocardiogram with color flow Doppler was performed. Left Ventricle * The left ventricle is normal in size. * The left ventricular ejection fraction is normal. * The left ventricular wall motion is normal. Atria * The left atrial size is normal. * No thrombus is detected in the left atrial appendage. * Right atrial size is normal. * No ASD detected; PFO is not assessed. Mitral Valve * The mitral valve anatomy is normal. * There is no mitral valve stenosis. * There is mild mitral regurgitation. Tricuspid Valve * The tricuspid valve is normal in structure and function. Aortic Valve * The aortic valve is normal in structure and function. Pulmonic Valve * The pulmonary valve is not well seen, but the Doppler examination is normal without significant regurgitation or stenosis. Great Vessels * The aortic root and proximal ascending aorta are normal sized. Pericardium * There is no pericardial effusion.
[2016-10-01] MEDS: WARFARIN SOD 5 MG TAB PO SCH (15:55)
--- NOTE | 2016-10-01 18:55 | Progress Note ---
Progress Note Date of Service Oct 01, 2016. Progress Note Patient underwent Cardioversion earlier today. Examined at bedside. Is in NSR @ 70 per minute. C/O weakness and mild dizziness. Denies any chest pain/pressure or SOB. Will likely keep her in hospital overnight and discharge in AM if stays stable. Piero Ortiz MD
[2016-10-02 03:32] VITALS: BP 115/86; PULSE 79; TEMP 36.4; O2SAT 95
[2016-10-02] MEDS: HEPARIN 25,000 UNIT/500ML D5W 500 ML IV PRN (04:03)
[2016-10-02 07:25] LABS: HEMATOCRIT 45.3 % (37-47); MEAN CELL VOLUME 88.5 fL (80-100); MEAN CORPUSCULAR HEMOGLOBIN 28.5 pg (25-34); MEAN CORPUSCULAR HGB CONC 32.2 g/dl (32-36); MEAN PLATELET VOLUME 9.9 fL (7.4-10.4); PLATELET COUNT 245 K/uL (130-400); RED BLOOD COUNT 5.12 M/uL (4.2-5.4); WHITE BLOOD COUNT 5.28 K/uL (4.8-10.8)
[2016-10-02 07:44] LABS: INR 1.6 (0.9-1.1); PARTIAL THROMBOPLASTIN RATIO 3.1; PROTHROMBIN TIME (PATIENT) 17.3 SECONDS (9.0-12.0)
[2016-10-02 07:51] VITALS: BP 126/84; PULSE 73; TEMP 36.6; O2SAT 94
[2016-10-02] MEDS: DILTIAZEM HCL 180 MG CAPCR PO SCH (07:59)
[2016-10-02] MEDS ORDERED: METOPROLOL SUCC 25MG EXT REL TAB PO SCH (09:00)
[2016-10-02] MEDS ORDERED: ENOXAPARIN 100 MG/1ML SYR SQ ONE (09:30)
--- NOTE | 2016-10-02 09:34 | Progress Note ---
Internal Med Progress Note Date of Service: Oct 02, 2016. Provider Documentation: SUBJECTIVE: Patient is sitting comfortably in her bed and is in no distress. Feeling better. Denies any chest pain/pressure and palpitations since yesterday. No other new change or complaint. Underwent EDIN & Cardioversion successfully on 10/01/2016. OBJECTIVE: Vital Signs-as noted below Examination: General Appearance: Alert/Awake sitting in her bed in no apparent distress Head: normocephalic Eyes: normal inspection ENT: hearing grossly normal. ears, Nose & Throat are normal looking. Neck: supple, midline trachea, No JVD Respiratory/Chest: lungs clear, normal breath sounds, no respiratory distress Cardiovascular: no edema, + irregularly irregular (rate in the low 80s) Abdomen/GI: normal bowel sounds, non tender, soft Extremities/Musculoskeletal: normal inspection, no calf tenderness Neurologic/Psych: no motor/sensory deficits, alert, normal mood/affect, oriented x 3 Skin: normal color, warm/dry Lab data as noted below. ASSESSMENT & PLAN: Echocardiogram (09/30/2016) Normal LV chamber size and wall thickness. Normal LV systolic function, EF 65-70%. No segmental left ventricular wall motion abnormalities are noted. No significant valvular pathology. New Onset Atrial Fibrillation with RVR: Clinically & hemodynamically doing well. HR is better controlled today. Patient presenting with reports of feeling her heart beating hard x 3 days; in the ER, found to be in atrial fibrillation with rates in the 150s -s/p Cardizem 20mg IV bolus and was placed on a drip with improvement in rates. Now on oral Cardizem CD. -Continue Heparin gtt in ED; CHAD2S score 1 (HTN). Stopped today and will get Lovenox. -Electrolytes and TSH noted to be WNL, -Serial Troponin X 3 is negative -Reviewed Normal findings of Echocardiogram -Reviewed cardiology consultation. Thanks for input.Discussed with Dr. Irvin. -Coumadin has been started. -EDIN & Cardioversion done on successfully. Hypertension: BP controlled while on cardizem gtt; will hold home dose amlodipine for now DVT Prophylaxis: I/V Heparin. Code Status: Full Code Disposition: Discharge home later today. Follow up in [facility] in 1-2 days and accordingly decision will be made to stop Lovenox. Follow up with PCP in 3-5 days Follow up with cardiology as per their advice. ADDENDUM Changed plan and she will be going home on Xarelto 20 mg daily. Vital Signs: Date Time Temp Pulse Resp B/P (MAP) Pulse Ox O2 Delivery O2 Flow Rate FiO2 10/02/16 12:44 36.6 73 16 94 Room Air 10/02/16 12:00 Room Air 10/02/16 08:00 Room Air 10/02/16 07:51 36.6 73 16 126/84 (98) 94 Room Air 10/02/16 04:00 Room Air 10/02/16 03:32 36.4 79 18 115/86 (96) 95 Room Air 10/02/16 00:00 Room Air 10/01/16 23:09 36.7 87 18 118/78 (91) 94 Room Air 10/01/16 20:00 Room Air 10/01/16 19:57 36.3 92 20 120/79 (93) 93 Room Air 10/01/16 16:00 Room Air 10/01/16 15:44 36.5 82 22 130/86 (101) 93 Nasal Cannula 1.0 Lab Results: Results Past 24 Hours Test 10/02/16 07:05 Range/Units White Blood Count 5.28 4.8-10.8 K/uL Red Blood Count 5.12 4.2-5.4 M/uL Hemoglobin 14.6 12.0-16.0 g/dL Hematocrit 45.3 37-47 % Mean Corpuscular Volume 88.5 80-100 fL Mean Corpuscular Hemoglobin 28.5 25-34 pg Mean Corpuscular Hemoglobin Concent 32.2 32-36 g/dl RDW Standard Deviation 44.0 36.4-46.3 fL RDW Coefficient of Variation 13.4 11.5-14.5 % Platelet Count 245 130-400 K/uL Mean Platelet Volume 9.9 7.4-10.4 fL Prothrombin Time 17.3 9.0-12.0 SECONDS Prothromb Time International Ratio 1.6 0.9-1.1 Activated Partial Thromboplast Time 80.1 21.0-31.0 SECONDS Partial Thromboplastin Ratio 3.1
[2016-10-02] MEDS ORDERED: CMD5 PO (09:37)
[2016-10-02] MEDS ORDERED: LVNIS80 SQ (09:37)
[2016-10-02] MEDS ORDERED: TPRSR25 PO (09:37)
[2016-10-02] MEDS ORDERED: CRDCD180 PO (09:37)
--- NOTE | 2016-10-02 09:43 | Discharge Instructions ---
Discharge Instructions Date of Service Oct 02, 2016. Admission Reason for Admission: New Onset Atrial Fibrillation Discharge Discharge Diagnosis / Problem: New Onset Atrial Fibrillation with RVR Discharge Goals Goal(s): Decrease discomfort, Improve function, Increase independence, Improve disease control, Improve nutritional status, Learn about illness, Diagnostic testing, Therapeutic intervention, Prevent Disease Progression Activity Recommendations Activity Limitations: resume your previous activity (As Tolerated.) Lifting Limitations: gradually increase as tolerated Exercise/Sports Limitations: gradually increase as tolerated May Resume Sexual Activity: when tolerated Shower/Bathe: no limitations Driving or Machine Use: resume 3 days after discharge . Instructions / Follow-Up Instructions / Follow-Up 1. Take all the medications as directed. 2. Avoid caffeine products. 3. Drink adequate amounts of fluids. Follow up with PCP in 3-5 days Follow up with cardiology as per their advice. Current Hospital Diet Patient's current hospital diet: AHA Diet (Heart Healthy) Discharge Diet Recommended Diet: AHA Diet (Heart Healthy) Procedures Procedures Performed: EDIN/cardioversion Pending Studies Studies pending at discharge: no Medical Emergencies . Who to Call and When: Medical Emergencies: If at any time you feel your situation is an emergency, please call 911 immediately. . Non-Emergent Contact Non-Emergency issues call your: Primary Care Provider . . "Provider Documentation" section prepared by Piero Ortiz. . VTE Core Measure Inpt VTE Proph given/why not?: Unfractionated heparin SQ, Other Anticoagulation
--- NOTE | 2016-10-02 09:53 | Discharge Summary ---
Discharge Summary Date of Service Oct 02, 2016. Discharge Summary Admission Date: Sep 29, 2016 at 13:59 Discharge Date: Oct 02, 2016 Discharge Disposition: Home Principal Diagnosis: New Onset Atrial Fibrillation with RVR Secondary Diagnoses/Problems: Hypertension Procedures: Echocardiogram EDIN Cardioversion Vaccinations: NONE Consultations: Cardiology Pending Studies/Follow-Up: Follow up with Cardiology in 1-2 weeks. Medication Reconciliation New Medications: Metoprolol Tartrate (Lopressor) (Lopressor) 50 Mg Tab 50 MG PO BID, #60 TAB Rivaroxaban (Xarelto) 20 Mg Tab 20 MG PO QDD, #30 TAB Discontinued Medications: Amlodipine Besylate (Norvasc) 5 Mg Tab 5 MG PO DAILY, #30 2 Refills Admission Information HPI (per Admitting provider): 61 year old female who presents to the ER with reports of feeling her heart beating hard. Patient reports her symptoms have been going on for about 2 days. She reports she first noticed it when she was driving home from work. She reports symptoms have been persistent. She denies palpitations but reports rather a feeling of her heart beating hard. She denies chest pain and pressure. She noted some exertional shortness of breath when trying to climb stairs. She reports mild intermittent lightheadedness. She denies dizziness or syncopal events. No diaphoresis or nausea. Reports she has been feeling well recently. No fevers or chills. She denies abdominal pain, vomiting, and diarrhea. No urinary symptoms. In the ER, patient was found to be in a fib with RVR with rates in the 150s. Patient was bolused with 20mg IV cardizem and placed on a drip with improvement in heart rate. She was also started on Heparin drip. Labs are unremarkable. Physical Exam (per Admitting): General Appearance: no apparent distress Head: normocephalic Eyes: normal inspection ENT: hearing grossly normal Neck: supple, no JVD Respiratory/Chest: lungs clear, normal breath sounds, no respiratory distress Cardiovascular: no edema, + irregularly irregular (rate in the low 100s) Abdomen/GI: normal bowel sounds, non tender, soft Extremities/Musculoskelatal: normal inspection, no calf tenderness Neurologic/Psych: no motor/sensory deficits, alert, normal mood/affect, oriented x 3 Skin: normal color, warm/dry Hospital Course Echocardiogram (09/30/2016) Normal LV chamber size and wall thickness. Normal LV systolic function, EF 65-70%. No segmental left ventricular wall motion abnormalities are noted. No significant valvular pathology. New Onset Atrial Fibrillation with RVR: Clinically & hemodynamically doing well. HR is better controlled today. Patient presenting with reports of feeling her heart beating hard x 3 days; in the ER, found to be in atrial fibrillation with rates in the 150s -s/p Cardizem 20mg IV bolus and was placed on a drip with improvement in rates. Now on oral Cardizem CD. -Continue Heparin gtt in ED; CHAD2S score 1 (HTN). Stopped today and will get Lovenox. -Electrolytes and TSH noted to be WNL, -Serial Troponin X 3 is negative -Reviewed Normal findings of Echocardiogram -Reviewed cardiology consultation. Thanks for input.Discussed with Dr. Irvin. -Coumadin has been started. -EDIN & Cardioversion done on successfully. Hypertension: BP controlled while on cardizem gtt; will hold home dose amlodipine for now DVT Prophylaxis: I/V Heparin. Code Status: Full Code Disposition: Discharge home later today. Follow up in [facility]madin Clinic in 1-2 days and accordingly decision will be made to stop Lovenox. Follow up with PCP in 3-5 days Follow up with cardiology as per their advice. Total time spent on discharge = 42 minutes. This includes examination of the patient, discharge planning, medication reconciliation, and communication with other providers. Discharge Instructions Discharge Goals Goal(s): Decrease discomfort, Improve function, Increase independence, Improve disease control, Improve nutritional status, Learn about illness, Diagnostic testing, Therapeutic intervention, Prevent Disease Progression Activity Recommendations Activity Limitations: resume your previous activity (As Tolerated.) Lifting Limitations: gradually increase as tolerated Exercise/Sports Limitations: gradually increase as tolerated May Resume Sexual Activity: when tolerated Shower/Bathe: no limitations Driving or Machine Use: resume 3 days after discharge . Instructions / Follow-Up Instructions / Follow-Up 1. Take all the medications as directed. 2. Avoid caffeine products. 3. Drink adequate amounts of fluids. 4. take Xarelto 20 mg daily Follow up with PCP in 3-5 days Follow up with cardiology as per their advice. Current Hospital Diet Patient's current hospital diet: AHA Diet (Heart Healthy) Discharge Diet Recommended Diet: AHA Diet (Heart Healthy) Additional Copies To aKtiuska Vázquez M.D. Ambrose, Navjot Moore D.O.
--- NOTE | 2016-10-02 12:37 | Cardiology Follow-Up ---
Subjective General Date of Service: Oct 02, 2016. Chief Complaint: follow up AF Pt evaluation today including: conversation w/ patient, physical exam History of Present Illness The patient is a 61 year old female seen in follow up. Patient remains in SR s/p EDIN CV yesterday with Dr Irvin. Telemetry reveals SR in the 70-86 bpm range at rest. Allergies Coded Allergies: No Known Allergies (Unverified , 09/29/16) Social History Smoking Status: Never Smoker Hx Tobacco Use In Past Year?: No Hx Alcohol Use - Type And Amou: No Hx Substance Use - Type And Am: No Physical Exam Vital Signs Last Vital Signs Documentation Date Time Temp Pulse Resp B/P (MAP) Pulse Ox O2 Delivery O2 Flow Rate FiO2 10/02/16 08:00 Room Air 10/02/16 07:51 36.6 73 16 126/84 (98) 94 10/01/16 15:44 1.0 Physical Exam Constitutional: Level of Distress: NAD Neck: supple Lungs: Auscultation: no rales/crackles Cardiovascular: Heart Auscultation: RRR, no murmurs, no rubs Extremities: no edema Neurologic: Gait & Station: pertinent finding (no focal deficits ) Assessment and Plan Assessment and Plan Impression 61 year old femal 1. Newly diagnosed AF, RVR, for which patient underwent EDIN guided DCCV on 2. H/o sarcoidosis Plan: Patient will required at least 1 month of uninterrupted anticoagulation post EDIN CV as outpatient for stroke prophylaxis, after which pt will need reassessment to determine if oysterman anticoagulation is necessary. Patient has cost concerns as she has no insurance. I discussed options with case management. Enoxaparin bridge would be very costly, about $100 per dose and would estimate pt would need at least 6 doses. Xarelto 20 mg daily has out of pocket cost of about $400 dollars, and less with rebate card, and also with this approach would save money on phlebotomy / INR costs. Will DC diltiazem CD. DC pre hospital amlodipine. DC metoprolol succinate 12.5 mg daily. Discharge patient on metoprolol tartrate 50 mg BID (first dose now prior to discharge). Discharge on Xarelto 20 mg PO daily x 30 days, first dose now, SYLWIA prior to discharge. Pt counseled to not miss any Xarelto doses. Follow up with Cardiology, Dr Irvin as outpatient within 30 days so that she can be reassessed before her 30 days of Xarelto is completed. Anticipate that she will need oysterman metoprolol therapy. Charli Perez DO Laboratory Results Last 24 Hours Test 10/02/16 07:05 White Blood Count 5.28 K/uL Red Blood Count 5.12 M/uL Hemoglobin 14.6 g/dL Hematocrit 45.3 % Mean Corpuscular Volume 88.5 fL Mean Corpuscular Hemoglobin 28.5 pg Mean Corpuscular Hemoglobin Concent 32.2 g/dl RDW Standard Deviation 44.0 fL RDW Coefficient of Variation 13.4 % Platelet Count 245 K/uL Mean Platelet Volume 9.9 fL Prothrombin Time 17.3 SECONDS Prothromb Time International Ratio 1.6 Activated Partial Thromboplast Time 80.1 SECONDS Partial Thromboplastin Ratio 3.1
[2016-10-02 12:44] VITALS: BP 126/84; PULSE 73; TEMP 36.6; O2SAT 94
[2016-10-02] MEDS ORDERED: METO50TA16 PO (13:15)
[2016-10-02] MEDS ORDERED: XRL20 PO (13:15)
[2016-10-02 13:23] VITALS: BP 118/79; PULSE 86; TEMP 36.5; O2SAT 96
[2016-10-02] MEDS ORDERED: RIVAROXABAN 20 MG TAB PO ONE (13:30)
[2016-10-02] MEDS ORDERED: METOPROLOL TARTRATE 50 MG TAB PO ONE (13:30)
[2016-10-02] MEDS ORDERED: METOPROLOL TARTRATE 50 MG TAB PO SCH (21:00)
[2016-10-03] MEDS ORDERED: RIVAROXABAN 20 MG TAB PO SCH (16:45)
--- NOTE | 2016-10-04 09:40 | Procedure Note ---
Procedure Note Date of Service Oct 01, 2016. Procedure Note Informed consent obtained patient prepped Moderate sedation with Versed 3mg and Fentanyl 75mg EDIN showed no SHARRI thrombus, EDIN completed probe removed pt repositioned DC cardioversion with 200J of energy delivered successful cardioversion to sinus tachycardia pt recovered in ICU tolerated well without complication transfer to [facility] after recovery completed.
== END 2016-10-02 14:20 | disposition home or self-care (01) | DRG 310 ==
LOC: C.EDB 11:08 → C.2T 13:59 → ENRESERV 14:09
PROVIDERS: ADMIT Internal Medicine; ATTEND Emergency Medicine
DX: I48.91 Unspecified atrial fibrillation (principal); Z83.3 Family history of diabetes mellitus; I10 Essential (primary) hypertension

== ENCOUNTER 2018-06-24 16:24 | Observation (INO) ==
[2018-06-24] MEDS ORDERED: SODIUM CHLORIDE 0.9% 1000ML 1,000 ML IV SCH (16:45)
[2018-06-24] MEDS ORDERED: cefOXitin 1,000 MG/50 ML BAG IV STA (16:45)
[2018-06-24 17:05] LABS: Appearance Urine Cloudy (Clear); Bacteria Urine Automated Negative (Negative); Bilirubin Urine Negative (Negative); Blood Urine 2+ (Negative); Color Urine Yellow; Epithelial Cell Urine Auto >30 /lpf (0-5); Glucose Urine UA Negative (Negative); Ketones Urine Trace (Negative); Leukocyte Esterase Urine 2+ (Negative); Nitrite Urine Negative (Negative); Protein Urine Negative (Negative); RBC Urine Automated 0-4 /hpf (0-4); Specific Gravity Urine 1.023 (1.000-1.030); Urobilinogen Urine Negative (Negative)
[2018-06-24 17:15] LABS: Basophils # (auto) 0.04 K/uL (0-0.2); Basophils % (auto) 0.3 %; Eosinophils # (auto) 0.05 K/uL (0-0.5); Eosinophils % (auto) 0.4 %; Hematocrit (blood only) 40.9 % (37-47); Hemoglobin 13.9 g/dL (12.0-16.0); Immature Granulocytes # (auto) 0.03 K/uL (0.00-0.02); Immature Granulocytes % (auto) 0.2 %; Lymphocytes # (auto) 1.66 K/uL (1.2-3.4); Lymphocytes % (auto) 12.8 %; Mean Corpuscular Volume 87.2 fL (80-100); Mean Platelet Volume 10.2 fL (7.4-10.4); Monocytes # (auto) 0.82 K/uL (0.11-0.59); Monocytes % (auto) 6.3 %; Neutrophils # (auto) 10.41 K/uL (1.4-6.5); Platelet Count 288 K/uL (130-400); RDW Coefficient of Variation 13.3 % (11.5-14.5); RDW Standard Deviation 42.4 fL (36.4-46.3); Red Blood Count 4.69 M/uL (4.2-5.4); White Blood Count 13.01 K/uL (4.8-10.8)
[2018-06-24 17:30] LABS: Albumin Level 3.6 gm/dl (3.4-5.0); BUN Creatinine Ratio 19.9 (10-20); Calcium 8.7 mg/dl (8.5-10.1); Creatinine Clr Calc Pharmacy 90.9 ml/min; Est GFR (African American) 96.6; Est GFR (Non-African American) 83.3; Potassium 3.8 mmol/L (3.5-5.1)
[2018-06-24 17:33] LABS: Albumin Globulin Ratio 0.8 (0.9-2); Bilirubin,Total 0.7 mg/dl (0.2-1); Globulin 4.3 gm/dl (2.5-4.0); Total Protein 7.9 gm/dl (6.4-8.2)
--- NOTE | 2018-06-24 17:33 | Emergency Department Note ---
Entered by Martine Adams acting as a scribe for Zain Cook DO History of Present Illness General Chief complaint: Abdominal Pain Stated complaint: APPENDICITIS - REFERRED BY DR. GLOVER Time Seen by Provider: 06/24/18 16:37 Source: patient History of Present Illness Onset (ago): day(s) 3 Location: abdomen Pain Consistency: + other (worsening) Maximum Pain Intensity: 2 Exacerbated By: + movement Associated symptoms: + fever/chills (Positive fever. Negative chills. ) and + nausea/vomiting (Positive nausea. Negative vomiting.); no shortness of breath The patient is a 63 year old female who presents to the Emergency Room with complaints of worsening abdominal pain starting 3 days ago. The patent states that she started having abdominal pain across her abdomen 3 days ago. She states that since then it has gotten worse and mainly moved to the right side. She reports that she went to her PCP today and they ordered a CT. She states that they then called her and told her to come to the ED. She notes that her abdominal pain is worse with movement. The patient complains of nausea and a fever. The patient denies chills, vomiting, and shortness of breath. Home Medications Home Medications Medication Instructions Recorded Confirmed Type amlodipine [Norvasc] 2.5 mg PO QAM 06/24/18 06/24/18 History apixaban [Eliquis] 5 mg PO BIDM 06/24/18 06/24/18 History ascorbic acid (vitamin C) [Vitamin 1,000 mg PO QAM 06/24/18 06/24/18 History C] cholecalciferol (vitamin D3) 0 unit PO QAM 06/24/18 06/24/18 History [Vitamin D3] magnesium 0 mg PO QAM 06/24/18 06/24/18 History metoprolol succinate [Toprol XL] 100 mg PO BIDM 06/24/18 06/24/18 History potassium 0 mg PO QAM 06/24/18 06/24/18 History oxycodone-acetaminophen [Percocet] 1 - 2 tab PO Q4H PRN #15 tab 06/25/18 Rx Allergies Allergy/AdvReac Type Severity Reaction Status Date / Time No Known Allergies Allergy Unverified 06/24/18 17:09 Past Med/Surg History Medical History Hypertension (Chronic) Sarcoidosis of lung A-fib Hypomagnesemia Tubal ligation status Surgical History History of tonsillectomy and adenoidectomy (Chronic) Family History Other No significant family history Social History Preferred Language: Swedish Communication Ability: Effective Interviewing Clerk Required: No Beliefs That Will Affect Care: None marital status: Current Living Situation: Spouse current occupational status: unemployed Feels Safe at Home: Yes Safety Concerns: Feels Safe At This Time Smoking Status: Never smoker Hx Alcohol Use: No Hx Substance Use: No Review of Systems See HPI for pertinent positives & negatives. and A total of 10 systems reviewed and were otherwise negative Physical Exam Vital Signs Vital Signs - 24 hr 06/24/18 16:32 06/24/18 18:10 06/24/18 18:25 Temperature 36.9 C 36.8 C Temperature Source Oral Temporal Artery Scan Sepsis Recent Fever Within 48 Hours No Sepsis New/Unexplained Change in Mental Status No Sepsis Action Taken by Nursing No Action Required Pulse Rate 87 Pulse Rate [Apical] 85 Pulse Rate [Finger] 79 Pulse Rhythm Regular Pulse Rhythm [Apical] Regular Pulse Rhythm [Finger] Pulse Strength Normal Pulse Strength [Finger] Respiratory Rate 20 18 16 Respiratory Effort / Characteristics Non-Labored Spontaneous Non-Labored Spontaneous Respiratory Depth Normal Normal Respiratory Pattern Regular Regular Blood Pressure 140/100 Blood Pressure [Left Arm] Blood Pressure [Right Arm] 162/98 H 155/101 H Blood Pressure Mean 113 Blood Pressure Mean [Left Arm] Blood Pressure Mean [Right Arm] 119 119 Blood Pressure Position Sitting Blood Pressure Position [Left Arm] Blood Pressure Position [Right Arm] Lying Pulse Oximetry 95 97 98 Oxygen Delivery Method Room Air Room Air Room Air Oxygen Flow Rate 06/24/18 19:42 06/24/18 19:50 06/24/18 20:00 Temperature 36.6 C Temperature Source Temporal Artery Scan Sepsis Recent Fever Within 48 Hours Sepsis New/Unexplained Change in Mental Status Sepsis Action Taken by Nursing Pulse Rate Pulse Rate [Apical] 85 82 79 Pulse Rate [Finger] Pulse Rhythm Pulse Rhythm [Apical] Regular Regular Regular Pulse Rhythm [Finger] Pulse Strength Pulse Strength [Finger] Respiratory Rate 24 22 20 Respiratory Effort / Characteristics Non-Labored Non-Labored Non-Labored Respiratory Depth Normal Normal Normal Respiratory Pattern Regular Regular Regular Blood Pressure Blood Pressure [Left Arm] Blood Pressure [Right Arm] 152/99 H 134/85 129/80 Blood Pressure Mean Blood Pressure Mean [Left Arm] Blood Pressure Mean [Right Arm] 116 101 96 Blood Pressure Position Blood Pressure Position [Left Arm] Blood Pressure Position [Right Arm] Semi-fowlers Semi-fowlers Semi-fowlers Pulse Oximetry 96 98 93 Oxygen Delivery Method Oxymask Oxymask Oxymask Oxygen Flow Rate 5 5 2 06/24/18 20:10 06/24/18 20:20 06/24/18 20:25 Temperature 36.5 C 37 C Temperature Source Temporal Artery Scan Oral Sepsis Recent Fever Within 48 Hours Sepsis New/Unexplained Change in Mental Status Sepsis Action Taken by Nursing Pulse Rate Pulse Rate [Apical] 83 87 Pulse Rate [Finger] 81 Pulse Rhythm Pulse Rhythm [Apical] Regular Regular Pulse Rhythm [Finger] Pulse Strength Pulse Strength [Finger] Respiratory Rate 20 20 18 Respiratory Effort / Characteristics Non-Labored Non-Labored Non-Labored Spontaneous Respiratory Depth Normal Normal Normal Respiratory Pattern Regular Regular Regular Blood Pressure Blood Pressure [Left Arm] Blood Pressure [Right Arm] 124/83 130/84 130/82 Blood Pressure Mean Blood Pressure Mean [Left Arm] Blood Pressure Mean [Right Arm] 96 99 98 Blood Pressure Position Blood Pressure Position [Left Arm] Blood Pressure Position [Right Arm] Semi-fowlers Semi-fowlers Pulse Oximetry 95 95 93 Oxygen Delivery Method Oxymask Oxymask Nasal Cannula Oxygen Flow Rate 2 2 2 06/24/18 20:55 06/24/18 21:11 06/24/18 22:11 Temperature 36.3 C L 36.3 C L 36.4 C L Temperature Source Oral Oral Oral Sepsis Recent Fever Within 48 Hours Sepsis New/Unexplained Change in Mental Status Sepsis Action Taken by Nursing Pulse Rate Pulse Rate [Apical] Pulse Rate [Finger] 82 78 83 Pulse Rhythm Pulse Rhythm [Apical] Pulse Rhythm [Finger] Regular Regular Pulse Strength Pulse Strength [Finger] Normal Normal Respiratory Rate 16 20 20 Respiratory Effort / Characteristics Non-Labored Spontaneous Respiratory Depth Normal Normal Normal Respiratory Pattern Regular Blood Pressure Blood Pressure [Left Arm] Blood Pressure [Right Arm] 117/79 128/83 113/72 Blood Pressure Mean Blood Pressure Mean [Left Arm] Blood Pressure Mean [Right Arm] 91 98 85 Blood Pressure Position Blood Pressure Position [Left Arm] Blood Pressure Position [Right Arm] Lying Lying Pulse Oximetry 94 95 92 Oxygen Delivery Method Room Air Nasal Cannula Room Air Oxygen Flow Rate 2 2 06/24/18 23:25 06/25/18 02:46 06/25/18 07:13 Temperature 36.6 C 36.5 C 36.6 C Temperature Source Oral Oral Oral Sepsis Recent Fever Within 48 Hours Sepsis New/Unexplained Change in Mental Status Sepsis Action Taken by Nursing Pulse Rate Pulse Rate [Apical] Pulse Rate [Finger] 88 77 79 Pulse Rhythm Pulse Rhythm [Apical] Pulse Rhythm [Finger] Pulse Strength Pulse Strength [Finger] Respiratory Rate 16 16 18 Respiratory Effort / Characteristics Respiratory Depth Respiratory Pattern Blood Pressure Blood Pressure [Left Arm] 105/68 117/73 Blood Pressure [Right Arm] 104/71 Blood Pressure Mean Blood Pressure Mean [Left Arm] 80 87 Blood Pressure Mean [Right Arm] 82 Blood Pressure Position Blood Pressure Position [Left Arm] Lying Lying Blood Pressure Position [Right Arm] Lying Pulse Oximetry 91 91 95 Oxygen Delivery Method Room Air Room Air Room Air Oxygen Flow Rate GENERAL: Patient is awake, alert, and in no acute distress. Patient is resting comfortably and showing no signs of anxiety. EYES: The conjunctivae are clear. The pupils are round and reactive. EARS, NOSE, MOUTH AND THROAT: The nose is without any evidence of deformity. Mucous membranes are moist. Tongue is midline. NECK: The neck is nontender and supple. RESPIRATORY: Normal respiratory effort is noted. There is no evidence of wheezing rhonchi or rales to auscultation. CARDIOVASCULAR: Regular rate and rhythm noted. There are no murmurs rubs or gallops. Normal S1, normal S2. GASTROINTESTINAL: The abdomen is mildly distended. Significant right upper and right lower tenderness to palpation. Guarding in the right lower quadrant. Bowel sounds are present in all quadrants. MUSCULOSKELETAL/EXTREMITIES: There is no evidence of gross deformity. Full range of motion is noted in the hips and shoulders. SKIN: There is no obvious evidence of any rash. No edema was noted. There is no petechiae, pallor or cyanosis noted. NEUROLOGIC: Patient is awake alert and oriented x3. Course 1638: The patient was evaluated in room C11B, and a complete history and physical examination were performed. I updated her on her test results and the treatment plan. She verbally agrees and understands. 1722: I reviewed the patient's case with Dr. Nelson- General Surgeon. He will evaluate the patient for further management. Administered Medications Lactated Ringer's (Lr) 1,000 mls @ 50 mls/hr IV .Q20H HARINI Stop: 07/24/18 20:40 Last Infusion: 06/25/18 05:54 Dose: 125 mls/hr Documented by: [id number] Admin: 06/25/18 04:44 Dose: 125 mls/hr Documented by: [id number] Infusion: 06/25/18 04:44 Dose: 125 mls/hr Documented by: [id number] Admin: 06/24/18 21:02 Dose: 125 mls/hr Documented by: [id number] Acetaminophen (Ofirmev) 1,000 mg in 100 mls @ 400 mls/hr IV Q8 HARINI Stop: 07/24/18 20:59 Last Infusion: 06/25/18 05:11 Dose: 0 mls/hr Documented by: [id number] Admin: 06/25/18 04:56 Dose: 400 mls/hr Documented by: [id number] Infusion: 06/24/18 22:11 Dose: 0 mls/hr Documented by: [id number] Admin: 06/24/18 21:41 Dose: 400 mls/hr Documented by: [id number] Discontinued Medications Bupivacaine HCl (Marcaine 0.5% Mpf) Confirm Administered Dose 30 ml .ROUTE .STK- MED ONE Stop: 06/24/18 18:07 Last Admin: 06/24/18 19:25 Dose: 20 ml Documented by: [id number] Sodium Chloride (Nss 1000ml) 1,000 mls @ 999 mls/hr IV .Q1H1M HARINI Stop: 06/24/18 17:45 Last Infusion: 06/24/18 21:08 Dose: 0 mls/hr Documented by: [id number] Admin: 06/24/18 17:17 Dose: 999 mls/hr Documented by: [id number] Cefoxitin Sodium (Mefoxin) 1,000 mg in 50 mls @ 100 mls/hr IV NOW STA Stop: 06/24/18 17:14 Last Infusion: 06/24/18 17:47 Dose: 0 mls/hr Documented by: [id number] Admin: 06/24/18 17:17 Dose: 100 mls/hr Documented by: [id number] Medical Decision Making Differential Diagnosis Etiologies such as appendicitis, diverticulitis, obstruction, inflammatory bowel disease, renal colic, PUD, biliary pathology, pancreatitis, mesenteric ischemia, aortic pathology, infections, gentourinary, UTI, perforated viscus, as well as others were entertained. Medical Records Attestation: I reviewed the patient's medical records. Home Medications Current Medication List: was personally reviewed by me Laboratory Data Attestation: I reviewed the patient's lab results. Result diagrams: 06/25/18 06:28 06/25/18 06:28 Lab Results 06/24/18 06/24/18 06/24/18 Range/Units 16:50 17:00 17:00 WBC 13.01 H (4.8-10.8) K/uL RBC 4.69 (4.2-5.4) M/uL Hgb 13.9 (12.0-16.0) g/dL Hct 40.9 (37-47) % MCV 87.2 (80-100) fL MCH 29.6 (25-34) pg MCHC 34.0 (32-36) g/dL RDW Std Deviation 42.4 (36.4-46.3) fL RDW Coeff of Jeff 13.3 (11.5-14.5) % Plt Count 288 (130-400) K/uL MPV 10.2 (7.4-10.4) fL Immature Gran % (Auto) 0.2 % Neut % (Auto) 80.0 % Lymph % (Auto) 12.8 % [place] % (Auto) 6.3 % Eos % (Auto) 0.4 % Baso % (Auto) 0.3 % Immature Gran # (Auto) 0.03 H (0.00-0.02) K/uL Neut # (Auto) 10.41 H (1.4-6.5) K/uL Lymph # (Auto) 1.66 (1.2-3.4) K/uL [place] # (Auto) 0.82 H (0.11-0.59) K/uL Eos # (Auto) 0.05 (0-0.5) K/uL Baso # (Auto) 0.04 (0-0.2) K/uL Sodium 135 L (136-145) mmol/L Potassium 3.8 (3.5-5.1) mmol/L Chloride 101 (98-107) mmol/L Carbon Dioxide 25 (21-32) mmol/L Anion Gap 9.0 (3-11) BUN 15 (7-18) mg/dl Creatinine 0.77 (0.6-1.2) mg/dl Est Cr Clr Drug Dosing 90.9 ml/min Est GFR ( Amer) 96.6 Est GFR (Non-Af Amer) 83.3 BUN/Creatinine Ratio 19.9 (10-20) Glucose 104 H (70-99) mg/dl Calcium 8.7 (8.5-10.1) mg/dl Phosphorus (2.5-4.9) mg/dl Total Bilirubin 0.7 (0.2-1) mg/dl AST 12 L (15-37) U/L ALT 21 (12-78) U/L Alkaline Phosphatase 81 (45-117) U/L Total Protein 7.9 (6.4-8.2) gm/dl Albumin 3.6 (3.4-5.0) gm/dl Globulin 4.3 H (2.5-4.0) gm/dl Albumin/Globulin Ratio 0.8 L (0.9-2) Lipase 164 (73-393) U/L Urine Color Yellow Urine Appearance Cloudy H (Clear) Urine pH 5.0 (4.5-7.5) Ur Specific [place] 1.023 (1.000-1.030) Urine Protein Negative (Negative) Urine Glucose (UA) Negative (Negative) Urine Ketones Trace H (Negative) Urine Blood 2+ H (Negative) Urine Nitrite Negative (Negative) Urine Bilirubin Negative (Negative) Urine Urobilinogen Negative (Negative) Ur Leukocyte Esterase 2+ H (Negative) Urine WBC (Auto) 10-30 H (0-5) /hpf Urine RBC (Auto) 0-4 (0-4) /hpf U Hyaline Cast (Auto) 5-10 H (0-5) /lpf U Epithel Cells (Auto) >30 H (0-5) /lpf Urine Bacteria (Auto) Negative (Negative) 06/25/18 06/25/18 Range/Units 06:28 06:28 WBC 11.68 H (4.8-10.8) K/uL RBC 4.18 L (4.2-5.4) M/uL Hgb 12.3 (12.0-16.0) g/dL Hct 36.7 L (37-47) % MCV 87.8 (80-100) fL MCH 29.4 (25-34) pg MCHC 33.5 (32-36) g/dL RDW Std Deviation 42.2 (36.4-46.3) fL RDW Coeff of Jeff 13.2 (11.5-14.5) % Plt Count 261 (130-400) K/uL MPV 10.0 (7.4-10.4) fL Immature Gran % (Auto) 0.3 % Neut % (Auto) 89.2 % Lymph % (Auto) 7.7 % [place] % (Auto) 2.7 % Eos % (Auto) 0.0 % Baso % (Auto) 0.1 % Immature Gran # (Auto) 0.03 H (0.00-0.02) K/uL Neut # (Auto) 10.42 H (1.4-6.5) K/uL Lymph # (Auto) 0.90 L (1.2-3.4) K/uL [place] # (Auto) 0.32 (0.11-0.59) K/uL Eos # (Auto) 0.00 (0-0.5) K/uL Baso # (Auto) 0.01 (0-0.2) K/uL Sodium 137 (136-145) mmol/L Potassium 4.4 D (3.5-5.1) mmol/L Chloride 106 (98-107) mmol/L Carbon Dioxide 25 (21-32) mmol/L Anion Gap 6.0 (3-11) BUN 11 (7-18) mg/dl Creatinine 0.75 (0.6-1.2) mg/dl Est Cr Clr Drug Dosing 93.4 ml/min Est GFR ( Amer) 99.7 Est GFR (Non-Af Amer) 86.0 BUN/Creatinine Ratio 14.1 (10-20) Glucose 139 H (70-99) mg/dl Calcium 8.4 L (8.5-10.1) mg/dl Phosphorus 3.2 (2.5-4.9) mg/dl Total Bilirubin 0.5 (0.2-1) mg/dl AST 10 L (15-37) U/L ALT 18 (12-78) U/L Alkaline Phosphatase 67 (45-117) U/L Total Protein 6.4 (6.4-8.2) gm/dl Albumin 2.8 L (3.4-5.0) gm/dl Globulin 3.6 (2.5-4.0) gm/dl Albumin/Globulin Ratio 0.8 L (0.9-2) Lipase (73-393) U/L Urine Color Urine Appearance (Clear) Urine pH (4.5-7.5) Ur Specific [place] (1.000-1.030) Urine Protein (Negative) Urine Glucose (UA) (Negative) Urine Ketones (Negative) Urine Blood (Negative) Urine Nitrite (Negative) Urine Bilirubin (Negative) Urine Urobilinogen (Negative) Ur Leukocyte Esterase (Negative) Urine WBC (Auto) (0-5) /hpf Urine RBC (Auto) (0-4) /hpf U Hyaline Cast (Auto) (0-5) /lpf U Epithel Cells (Auto) (0-5) /lpf Urine Bacteria (Auto) (Negative) Blood Pressure Blood Pressure Findings: Elevated blood pressure Blood Pressure Disposition: elevated BP felt to be situational MDM Narrative The patient is a 63-year-old female who presented to the emergency department for an evaluation of right lower quadrant abdominal pain. The patient's been having right lower quadrant abdominal pain for approximately 3 days. The pain initially was across the lower abdomen but then localized to the right lower quadrant. She had an outpatient CAT scan of the abdomen and pelvis ordered by her primary care physician which was consistent with acute appendicitis. She was sent to the emergency department for further evaluation. The patient was treated with IV fluids and IV antibiotics. I discussed the patient's CAT scan report with her. I also discussed her case with the on-call general surgical group. They have agreed to evaluate the patient in the emergency department for further management and disposition. Impression & Plan Appendicitis Discharge Plan Visit Data *Final* Discharge Date/Time: 06/24/18 18:14 Chief Complaint: Abdominal Pain Stated Complaint: APPENDICITIS - REFERRED BY DR. GLOVER ED Provider: Zain Cook Discharge Problem: Appendicitis Patient Disposition: Still a Patient Discharge Instructions Interventions: ED Discharge Assessment Last Done: 06/24/18 18:14 Discharge Problem: Appendicitis Qualifiers: Appendicitis type: unspecified Qualified Code(s): K37 - Unspecified appe ndicitis The scribe's documentation has been prepared under my direction and personally r eviewed by me in its entirety. I confirm that the note above accurately reflects all work, treatment, procedures, and medical decision making performed by me.
--- NOTE | 2018-06-24 17:42 | History & Physical Report ---
Date of Service June 24, 2018 Assessment & Plan (1) Appendicitis: Acute appenidicits, will plan for laparoscopic appendectomy this evening. Mefoxin was given in the ED. History of Present Illness Primary Care Provider: Katiuska Vázquez MD 63 y/o female with abdominal pain began 3 days ago and now localizing to RLQ. Saw PCP today, had outpatient CT and referred to the ED for appendicitis. Had some rice around lunch. No fevers or chills. She id on Eliquis for A-fib, had morning dose. Allergies Allergy/AdvReac Type Severity Reaction Status Date / Time No Known Allergies Allergy Unverified 06/24/18 17:09 Home Medications Home Medications Medication Instructions Recorded Confirmed Type amlodipine [Norvasc] 2.5 mg PO QAM 06/24/18 06/24/18 History apixaban [Eliquis] 5 mg PO BIDM 06/24/18 06/24/18 History ascorbic acid (vitamin C) [Vitamin 1,000 mg PO QAM 06/24/18 06/24/18 History C] cholecalciferol (vitamin D3) 0 unit PO QAM 06/24/18 06/24/18 History [Vitamin D3] magnesium 0 mg PO QAM 06/24/18 06/24/18 History metoprolol succinate [Toprol XL] 100 mg PO BIDM 06/24/18 06/24/18 History potassium 0 mg PO QAM 06/24/18 06/24/18 History Past Med/Surg History Medical History Hypertension (Chronic) Sarcoidosis of lung A-fib Hypomagnesemia Tubal ligation status Surgical History History of tonsillectomy and adenoidectomy (Chronic) Family History Other No significant family history Social History Preferred Language: Thai marital status: Current Living Situation: Spouse current occupational status: unemployed Feels Safe at Home: Yes Smoking Status: Never smoker Review of Systems Constitutional: no fever and no chills Cardiovascular: no chest pain and no chest pain at rest Gastrointestinal: + abdominal pain and + nausea; no vomiting Physical Exam Vital Signs (Past 24 Hours): Last Vital Signs Temp 36.9 C 06/24/18 16:32 Pulse 87 06/24/18 16:32 Resp 20 06/24/18 16:32 BP 140/100 06/24/18 16:32 Pulse Ox 95 06/24/18 16:32 Constitutional: WD/WN, vitals as above Respiratory: normal respiratory effort, lungs clear to auscultation Cardiovascular: RRR, no murmur, no edema Gastrointestinal (Abdomen): Inspection/Auscultation: abdomen not distended Percussion/Palpation: + abdomen tender (RLQ) and + guarding Supervising Physician Co-Signing Physician Notes Patient seen and examined, imaging report and labs reviewed, agree with above. 63-year-old female with several days of abdominal pain that migrated to the right lower quadrant. CT scan as an outpatient at [facility] revealed acute uncomplicated appendicitis. Mild leukocytosis, she is currently on Eliquis that she took this morning for atrial fibrillation. No history of CO. Plan for laparoscopic appendectomy. The risk of the procedure were discussed to include but are not limited to bleeding, infection, normal appendix, damage to surrounding structures, need for future more extensive surgery, abscess, and the risks of anesthesia. She understands that she is in slightly increased risk of bleeding complications secondary to her Eliquis use but is willing to proceed with surgery rather than delaying and risking perforation. Antibiotics preop. Plan of care discussed the patient, WERE answered, the patient expressed understanding agrees the plan of care as stated.
[2018-06-24] MEDS ORDERED: MIDAZOLAM HCL 1 MG/ML 2ML VIAL ONE (17:45)
[2018-06-24] MEDS ORDERED: GLYCOPYRROLATE 0.2 MG/ML VIAL ONE (17:45)
[2018-06-24] MEDS ORDERED: PROPOFOL IV EMULSION 10 MG/ML 20 ML VIAL IV ONE (17:45)
[2018-06-24] MEDS ORDERED: LIDOCAINE HCL 2% 2 ML VIAL/AMP(20MG/ML) INFIL ONE (17:45)
[2018-06-24] MEDS ORDERED: KETOROLAC 30 MG/ML VIAL ONE (17:45)
[2018-06-24] MEDS ORDERED: DEXAMETHASONE SOD INJ 4 MG/ML VIAL ONE (17:45)
[2018-06-24] MEDS ORDERED: fentaNYL citrate 100 MCG/2 ML VIAL ONE ×2 (17:45)
[2018-06-24] MEDS ORDERED: ROCURONIUM BROMIDE 10 MG/ML 5 ML VIAL ONE (17:45)
[2018-06-24] MEDS ORDERED: LARYING-O-JET KIT (LTA) ONE (17:45)
[2018-06-24] MEDS ORDERED: NEOSTIGMINE METHYLSULFATE 5 MG/5 ML SYR ONE (17:45)
[2018-06-24] MEDS ORDERED: ONDANSETRON INJ 2 MG/ML 2 ML VIAL ONE (17:45)
[2018-06-24] MEDS ORDERED: ePHEDrine sulfate 50 MG/ML AMP IV PRN (18:01)
[2018-06-24] MEDS ORDERED: ONDANSETRON INJ 2 MG/ML 2 ML VIAL IV PRN ×2 (18:01→20:41)
[2018-06-24] MEDS ORDERED: fentaNYL citrate 100 MCG/2 ML VIAL IV PRN (18:01)
[2018-06-24] MEDS ORDERED: HYDROmorphone INJ 1 MG/ML SYRINGE IV PRN (18:01)
[2018-06-24] MEDS ORDERED: ATROPINE SULFATE 0.1 MG/ML 10ML SYR IV PRN (18:01)
--- NOTE | 2018-06-24 18:03 | Anesthesiology Consultation ---
Date of Service June 24, 2018 Assessment & Plan Chart Review Chart Review: Acceptable Risk for Surgery and Patient NOT seen in Pre Admission Testing Consults Requested none History Surgery Operation Date: 06/24/18 18:00 Proposed Procedures p Laparoscopic Appendectomy - Navjot Nelson DO, JAMES Height/Weight Height: 5 ft 7 in Weight: 95.3 kg Allergies Allergy/AdvReac Type Severity Reaction Status Date / Time No Known Allergies Allergy Unverified 06/24/18 17:09 Medications Home Medications Medication Instructions Recorded Confirmed Last Taken amlodipine [Norvasc] 2.5 mg PO QAM 06/24/18 06/24/18 06/24/18 apixaban [Eliquis] 5 mg PO BIDM 06/24/18 06/24/18 06/24/18 ascorbic acid (vitamin C) [Vitamin 1,000 mg PO QAM 06/24/18 06/24/18 06/24/18 C] cholecalciferol (vitamin D3) 0 unit PO QAM 06/24/18 06/24/18 06/24/18 [Vitamin D3] magnesium 0 mg PO QAM 06/24/18 06/24/18 06/24/18 metoprolol succinate [Toprol XL] 100 mg PO BIDM 06/24/18 06/24/18 06/24/18 potassium 0 mg PO QAM 06/24/18 06/24/18 06/24/18 Past Medical History Medical History Hypertension (Chronic) Sarcoidosis of lung A-fib Hypomagnesemia Tubal ligation status Past Family History Family History Other No significant family history Past Surgical History Surgical History History of tonsillectomy and adenoidectomy (Chronic) Past Anesthesia History No Hx of Anesthesia Complications and No Family Hx of Anesthesia Complications History of PONV No Motion Sickness Screening History of Motion Sickness: No Social History Smoking Status: Never smoker Hx Alcohol Use: No Hx Substance Use: No Exercise / Class Metabolic Activity II 4-5 Yardwork/Stairs/Walk up hill Physical Exam Vital Signs Last Vital Signs Temp 36.9 C 06/24/18 16:32 Pulse 79 06/24/18 18:10 Resp 18 06/24/18 18:10 BP 162/98 H 06/24/18 18:10 Pulse Ox 97 06/24/18 18:10 Testing Laboratory Results 06/24/18 17:00 06/24/18 17:00 Urine Color Yellow 06/24/18 16:50 Urine Appearance Cloudy (Clear) H 06/24/18 16:50 Urine pH 5.0 (4.5-7.5) 06/24/18 16:50 Ur Specific [place] 1.023 (1.000-1.030) 06/24/18 16:50 Urine Protein Negative (Negative) 06/24/18 16:50 Urine Glucose (UA) Negative (Negative) 06/24/18 16:50 Urine Ketones Trace (Negative) H 06/24/18 16:50 Urine Nitrite Negative (Negative) 06/24/18 16:50 Ur Leukocyte Esterase 2+ (Negative) H 06/24/18 16:50 Urine WBC (Auto) 10-30 /hpf (0-5) H 06/24/18 16:50 Urine RBC (Auto) 0-4 /hpf (0-4) 06/24/18 16:50 U Hyaline Cast (Auto) 5-10 /lpf (0-5) H 06/24/18 16:50 U Epithel Cells (Auto) >30 /lpf (0-5) H 06/24/18 16:50 Urine Bacteria (Auto) Negative (Negative) 06/24/18 16:50
[2018-06-24] MEDS ORDERED: BUPIVACAINE 0.5 % 5 MG/1 ML MPF 30ML VIAL ONE (18:06)
--- NOTE | 2018-06-24 19:37 | Operative Report ---
Post Operative Report Pre & Post Diagnosis Operation Date: 06/24/18 18:00 Pre-Op Diagnosis: ACUTE APPENDICITIS Post-Op Diagnosis: ACUTE APPENDICITIS Procedure Operation Date: 06/24/18 18:00 Actual Procedures p Laparoscopic Appendectomy(Not Applicable) - Navjot Nelson DO, JAMES Surgeon Navjot Nelson DO, JAMES Furnace Stock Inspector None Estimated Blood Loss 5 Findings Consistent with Post-Op Diagnosis acute, non perforated appendicitis Specimens appendix Anesthesia Type General Complications none Disposition Accompanied Patient To Recovery: No Disposition: Recovery Room Indications 63-year-old female with abdominal pain that migrated to the right lower quadrant over the past several days, CT scan shows acute uncomplicated appendicitis. Patient is on Eliquis for A. fib. Plan for laparoscopic appendectomy. The risks of the procedure were discussed, all questions were answered, and the patient agreed to proceed with surgery as planned. Description of Procedure The patient was properly identified, consented, and taken to the operating room where she was placed in the supine position. General endotracheal anesthesia was induced. SCDs and a safety belt were placed. Preoperative antibiotics were administered. A Gong catheter was not placed. The patient's abdomen was prepped and draped in the standard sterile fashion. Surgical timeout was performed and all parties were in agreement that this was the correct patient and procedure to be performed and we continued as planned. A curvilinear infraumbilical incision was made with electrocautery and deepened down to the fascia with blunt dissection. The base of the umbilicus was grasped with a Alison and elevated towards the ceiling. An incision was made in the midline fascia with a knife and entry into the peritoneum was confirmed. Stay suture of 0 Vicryl was placed and a Bo trocar was inserted. The abdomen was insufflated with carbon dioxide which the patient tolerated without incident. The laparoscope was inserted and no damage from initial trocar placement was noted, no gross abnormalities were noted within the 4 quadrants the abdomen. 5 mm ports were then placed in the left lower quadrant with care not to damage the epigastric vessels, and in the suprapubic midline with care not to damage the bladder. The patient was placed in Trendelenburg position and rotated towards the left. The omentum was adhesed to the abdominal wall in the left upper quadrant. There was some small bowel adhesions in the right lower quadrant with some fibrinous exudate were swept away with blunt dissection. The small bowel was swept away from the right lower quadrant. The cecum was grasped with an atraumatic grasper exposing the appendix. The appendix was mildly inflamed and there was no evidence of perforation. There was small amount of fluid in the pelvis. A window was created between the base of the appendix and the mesoappendix. A amor loaded endoscopic stapler was then used to divide the appendix at its base. Harmonic scalpel was then used to divide the mesoappendix. Hemostasis was good excellent. The appendix was placed in an Endo Catch bag and removed through the umbilical port site. The right lower quadrant and pelvis was irrigated and hemostasis was found to be good. 5 mm trochars were removed under direct visualization and the abdomen was allowed to collapse. The umbilical port site fascia was closed with 0 Vicryl suture. The wound was irrigated, and the skin of all ports was closed with 4-0 Monocryl subcuticular sutures. Dermabond was p laced over the wounds. The patient was extubated in the operating room and taken to the PACU where she recovered without apparent incident. All sponge, instrument and needle counts were correct at the conclusion of the procedure. The patient tolerated the procedure well. I attest to the content of the Intraoperative Record and any orders documented therein. Any exceptions are noted below.
--- NOTE | 2018-06-24 19:53 | Anesthesiology Progress Note ---
Date of Service June 24, 2018 Anesthesia Post Procedure Vital Signs Vital Signs: Temp Pulse Pulse Pulse Resp BP BP 06/24/18 19:50 82 22 134/85 06/24/18 19:42 36.6 C 85 24 152/99 H 06/24/18 18:25 36.8 C 85 16 155/101 H 06/24/18 18:10 79 18 162/98 H 06/24/18 16:32 36.9 C 87 20 140/100 Pulse Ox 06/24/18 19:50 98 06/24/18 19:42 96 06/24/18 18:25 98 06/24/18 18:10 97 06/24/18 16:32 95 Pain Intensity Right Flank: Pain Intensity: 0 Notes Mental Status: alert / awake / arousable and participated in evaluation Patient Amnestic to Procedure: Yes Nausea / Vomiting: adequately controlled Pain: adequately controlled Airway Patency, RR, SpO2: stable & adequate BP & HR: stable & adequate Hydration State: stable & adequate Anesthetic Complications: no major complications apparent and Pt Satisfied with anesthetic care
[2018-06-24] MEDS ORDERED: MoRPHine SULFATE 4 MG/ML 1 ML CARP\\VIAL IV PRN (20:41)
[2018-06-24] MEDS ORDERED: MoRPHine SULFATE 2 MG/ML CARP IV PRN (20:41)
[2018-06-24] MEDS ORDERED: DiphenhydrAMINE HCL 50 MG/ML VIAL IV PRN (20:41)
[2018-06-24] MEDS ORDERED: OXYCODONE HCL IR 5 MG TAB (IMMEDIATE RELEASE) PO PRN ×2 (20:41)
[2018-06-24] MEDS: LACTATED RINGER'S 1,000 ML IV SCH (21:02)
[2018-06-24] MEDS: ACETAMINOPHEN 1,000 MG/100 ML VIAL IV SCH (21:41)
[2018-06-25] MEDS: LACTATED RINGER'S 1,000 ML IV SCH (04:44)
[2018-06-25] MEDS: ACETAMINOPHEN 1,000 MG/100 ML VIAL IV SCH ×2 (04:56→14:15)
[2018-06-25 06:56] LABS: Basophils # (auto) 0.01 K/uL (0-0.2); Basophils % (auto) 0.1 %; Hematocrit (blood only) 36.7 % (37-47); Hemoglobin 12.3 g/dL (12.0-16.0); Immature Granulocytes # (auto) 0.03 K/uL (0.00-0.02); Immature Granulocytes % (auto) 0.3 %; Lymphocytes % (auto) 7.7 %; Mean Corpuscular Hgb Conc 33.5 g/dL (32-36); Mean Corpuscular Volume 87.8 fL (80-100); Monocytes # (auto) 0.32 K/uL (0.11-0.59); Monocytes % (auto) 2.7 %; Neutrophils # (auto) 10.42 K/uL (1.4-6.5); Neutrophils % (auto) 89.2 %; Platelet Count 261 K/uL (130-400); RDW Coefficient of Variation 13.2 % (11.5-14.5); RDW Standard Deviation 42.2 fL (36.4-46.3); Red Blood Count 4.18 M/uL (4.2-5.4); White Blood Count 11.68 K/uL (4.8-10.8)
[2018-06-25 07:30] LABS: Albumin Level 2.8 gm/dl (3.4-5.0); BUN Creatinine Ratio 14.1 (10-20); Calcium 8.4 mg/dl (8.5-10.1); Creatinine Clr Calc Pharmacy 93.4 ml/min; Est GFR (African American) 99.7; Potassium 4.4 mmol/L (3.5-5.1)
[2018-06-25 07:41] LABS: Albumin Globulin Ratio 0.8 (0.9-2); Bilirubin,Total 0.5 mg/dl (0.2-1); Globulin 3.6 gm/dl (2.5-4.0); Phosphorus 3.2 mg/dl (2.5-4.9); Total Protein 6.4 gm/dl (6.4-8.2)
--- NOTE | 2018-06-25 07:52 | Surgery Progress Note ---
Date of Service June 25, 2018 Assessment & Plan (1) Appendicitis: POD 1 lap appy, on Eliquis for A-fib H&H stable diet as magali likely d/c later today Subjective feels much better Physical Exam Vital Signs (Past 24 Hours): Last Vital Signs Temp 36.6 C 06/25/18 07:13 Pulse 79 06/25/18 07:13 Resp 18 06/25/18 07:13 BP 117/73 06/25/18 07:13 Pulse Ox 95 06/25/18 07:13 Gastrointestinal (Abdomen): Inspection/Auscultation: + abdominal surgical incision (clean, dry); abdomen not distended Percussion/Palpation: abdomen soft (1) Appendicitis Appendicitis type: unspecified Qualified Code(s): K37 - Unspecified appendicitis
[2018-06-25] MEDS ORDERED: AMLODIPINE BESYLATE 5 MG TAB PO SCH (09:00)
[2018-06-25] MEDS ORDERED: METOPROLOL SUCC 50MG EXT REL TAB PO ONE (09:45)
[2018-06-25] MEDS ORDERED: METOPROLOL SUCC 50MG EXT REL TAB PO SCH (17:00)
--- NOTE | 2018-06-28 17:09 | Discharge Summary ---
PRIMARY DISCHARGE DIAGNOSIS: Acute appendicitis. SECONDARY DISCHARGE DIAGNOSES: 1. Atrial fibrillation. 2. Hypertension. 3. Sarcoidosis. HOSPITAL COURSE: The patient is a 63-year-old female who saw her PCP for several days of abdominal pain, had outpatient CT which showed acute appendicitis. Her white count was 13,000. She is on Eliquis for atrial fibrillation, but we decided that benefits of surgery outweigh the risks. She was taken to the operating room for laparoscopic appendectomy. Procedure was well tolerated. She was transferred to the surgical floor for overnight observation. In the postoperative day 1, her white count was improved to 11,000. Her H and H was stable. Her abdomen was soft. She was able to tolerate advancing diet and oral analgesics. She was stable for discharge. DISCHARGE INSTRUCTIONS: Discharge home. Follow up with Dr. Nelson in 2 weeks. DISCHARGE MEDICATIONS: Percocet 1-2 tablets every 4 hours as needed. Continue her home Norvasc 2.5 mg daily, vitamin C and vitamin D supplements, Toprol-XL 100 mg p.o. b.i.d., potassium supplement daily. Hold her Eliquis for 2 days.
== END 2018-06-25 15:30 | disposition home or self-care (01) ==
LOC: ED 16:24 → 3N 18:14 → OR 18:14

== ENCOUNTER 2018-10-21 12:08 | Inpatient (IN) ==
--- NOTE | 2018-10-21 12:54 | History & Physical Report ---
Date of Service October 21, 2018 Assessment & Plan (1) Atrial fibrillation with RVR: Did not respond to flecainide given in ED. Temporary relief with IV metoprolol. Referred for direction admission today by PCP/outpatient cardiology - Consult cardiology for additional recommendations - pt prefers to avoid repeat cardioversion if posisble - Continue metoprolol 100 mg BID and Eliquis 5 mg BID for now - Monitor on telemetry - BUN/creatinine ratio >20:1 - appears to be mildly dehydrated. Will give 1 liter of IVF (NSS) (2) Hypertension: - Continue home meds and monitor (Toprol XL and amlodipine) (3) Sarcoidosis of lung: Chronic issue - stable from clinical perspective Pt seen and reviewed with collaborating physician, Dr. Kay. Plan of care discussed and as outlined above. Await cardiology input. Charli Fam PA-C History of Present Illness Chief Complaint: Palpitations Primary Care Provider: Katiuska Vázquez MD This is a 63 y/o female with a PMH of PAF, sarcoidosis of lung, HTN and dyslipidemia who presents today as a direct admission for persistent symptomatic atrial fibrillation. Pt has a history of paroxysmal atrial fibrillation first diagnosed in 2016 for which she underwent DC cardioversion. Has continued to follow with Dr. Irvin for cardiology since that time. She has had intermittent episodes of palpitations since 2017 but attributed initially to ectopy after ZIO patch monitoring. In early September 2017, pt again developed atrial fibrillation with RVR (140s) - she declined inpatient management and was started on Xarelto x 1 month and her Toprol XL was increased. Ultimately did not improve and was seen in the ED two days later - rate controlled in ED with IV beta-blockers and pt discharged. At cardiology f/u later in September, she was back in sinus rhythm. In Jan 2018, she was again seen by cardiology due to recurrent symptoms that were thought secondary to PAF. Beta-blockers increased and Eliquis was started. At most recent cardiology f/u on 09/30/18, pt was doing well on Toprol XL 100 mg BID and Eliquis 5 mg BID. She also had propranolol 20 mg to take prn for palpitations. About 1 week ago, pt developed recurrent palpitations. She tried the prn propranolol without relief. Worsening symptoms over the weekend so seen in the ED two days ago. Given flecainide without relief. Improvement with IV metroprolol so able to be discharged home. Unity better that evening and yesterday morning but recurrent palpitations yesterday afternoon and evening. Unity even worse this AM - tried dose of propranolol without relief. Seen in PCP office and had EKG done. Dr. Vázquez spoke with Dr. Irvin who recommended admission for additional IV medication therapy. Pt states that she wants to avoid cardioversion if possible. She notes occasional lightheadedness, particularly with position changes. Only lasts a few seconds. She admits that she is likely dehydrated - had a headache last week that responded to increasing her fluids. She has been out working in the heat in the past few days. Doesn't drink water but rather only caffeine-free diet Pepsi. No recent illnesses. Denies unusual bruising or bleeding since being on the Eliquis. She denies significant caffeine intake. Prior Cardiac Testing: One week ZIO patch performed April 2017 showed symptomatic ventricular and supraventricular ectopy. No sustained arrhythmias. No episodes of atrial fibrillation. Exercise stress echocardiogram performed 05/18/2017 was read as nonischemic with sinus rhythm throughout the study. Exercise capacity is average exercising 6 minutes and 7 seconds. Resting study showed normal LV chamber size with borderline concentric LVH, normal LV systolic function, EF 55-59% with grade 2 diastolic dysfunction. No significant valvular disease. Allergies Allergy/AdvReac Type Severity Reaction Status Date / Time JUAN PABLO Inhibitors AdvReac cough Verified 10/21/18 13:05 Home Medications Home Medications Medication Instructions Recorded Confirmed Type amlodipine [Norvasc] 2.5 mg PO QAM 06/24/18 10/21/18 History ascorbic acid (vitamin C) [Vitamin 1,000 mg PO QAM 06/24/18 10/21/18 History C] cholecalciferol (vitamin D3) 0 unit PO QAM 06/24/18 10/21/18 History [Vitamin D3] magnesium 0 mg PO QAM 06/24/18 10/21/18 History metoprolol succinate [Toprol XL] 100 mg PO BIDM 06/24/18 10/21/18 History potassium 0 mg PO QAM 06/24/18 10/21/18 History apixaban [Eliquis] 5 mg PO BID 10/19/18 10/21/18 History propranolol 20 mg PO DIRECTED PRN 10/19/18 10/21/18 History Past Med/Surg History Medical History Hypertension (Chronic) Sarcoidosis of lung (Chronic) A-fib (Chronic) Hypomagnesemia Dyslipidemia (Chronic) Surgical History History of tonsillectomy and adenoidectomy (Chronic) History of History of lymph node biopsy Mediastinoscopy with biopsy of mediastinal node - 2012 Dr. Bravo Tubal ligation status Family History Father Myocardial infarction, Onset Age: 63 Social History Preferred Language: Kyrgyz Communication Ability: Effective Customer Support Representative Required: No Beliefs That Will Affect Care: None marital status: Current Living Situation: Spouse current occupational status: unemployed Other Information That Helps Us Care for You: No Feels Safe at Home: Yes Safety Concerns: Feels Safe At This Time Smoking Status: Never smoker Hx Alcohol Use: No Hx Substance Use: No Review of Systems Review of Systems: All systems reviewed & are unremarkable except as noted in HPI & below Constitutional: + fatigue and + weight gain (reports ongoing issue); no fever, no chills, no sweats and no malaise Eyes: no diplopia, not seeing flashes and no worsening vision Ear, Nose, Mouth, Throat: no ear pain, no nasal congestion, no nasal discharge, no sore throat and no dysphagia Respiratory: + dyspnea on exertion (chronic due to sarcoidosis - unchanged); no cough, no pain on inspiration and no wheezing Cardiovascular: + palpitations and + lightheadedness; no chest pain, no syncope, no edema and no calf pain Gastrointestinal: no abdominal pain, no heartburn, no nausea, no vomiting, no dysphagia, no diarrhea/loose stools and no blood in stools Genitourinary: + nocturia (chronic - 1-2 times per night); no dysuria, no urinary frequency and no hematuria Musculoskeletal: + joint pain (right rotator cuff problem - underwent injection last week with improvement in pain); no back pain, no neck pain, no myalgia and no muscle weakness Integumentary: no rash, no skin ulcer, no yellowing of the skin and no unusual bruising Neurologic: no numbness, no paresthesia, no seizure-like activity and no syncope Psychiatric: no depression, no anxiety and no confusion Physical Exam Constitutional: WD/WN, vitals as above no acute distress Eyes: PERRL, conjunctivae normal, anicteric sclerae ENMT: external ear and nose normal, oropharynx normal Neck: trachea midline Respiratory: normal respiratory effort, lungs clear to auscultation Auscultation: no rales, no rhonchi and no wheezes Cardiovascular: Rate/Rhythm: + tachycardic and + irregularly irregular Vessels: no JVD and no carotid bruit Extremities: normal capillary refill; no calf tenderness and no pedal edema Gastrointestinal (Abdomen): Inspection/Auscultation: normal bowel sounds; abdomen not distended Percussion/Palpation: abdomen soft; abdomen nontender Musculoskeletal: Head/Neck/Chest: normocephalic, head atraumatic and neck supple Extremities: no cyanosis and no clubbing Skin: no rashes, warm and dry no jaundice Neurologic: moves all extremities; no focal motor deficits Speech / Cognition: normal speech Psychiatric: A+Ox3, euthymic affect Results & Data Laboratory Results Laboratory Results - last 24 hr 10/21/18 10/21/18 12:44 12:44 WBC 15.41 H RBC 4.91 Hgb 15.0 Hct 43.9 MCV 89.4 MCH 30.5 MCHC 34.2 RDW Std Deviation 44.1 RDW Coeff of Jeff 13.5 Plt Count 378 MPV 10.0 Immature Gran % (Auto) 0.3 Neut % (Auto) 80.2 Lymph % (Auto) 12.6 [place] % (Auto) 6.5 Eos % (Auto) 0.1 Baso % (Auto) 0.3 Immature Gran # (Auto) 0.05 H Neut # (Auto) 12.36 H Lymph # (Auto) 1.94 [place] # (Auto) 1.00 H Eos # (Auto) 0.02 Baso # (Auto) 0.04 Sodium 137 Potassium 4.3 Chloride 105 Carbon Dioxide 24 Anion Gap 8.0 BUN 20 H Creatinine 0.71 Est Cr Clr Drug Dosing 97.3 Est GFR ( Amer) 106.5 Est GFR (Non-Af Amer) 91.9 BUN/Creatinine Ratio 28.6 H Glucose 106 H Calcium 8.7 Magnesium 2.4 Total Bilirubin Pending AST 9 L ALT 22 Alkaline Phosphatase Pending Troponin I Pending Total Protein Pending Albumin 3.7 Globulin Pending Albumin/Globulin Ratio Pending TSH Pending Diagnostic Findings Chest X-ray 10/19/18 - no acute process Supervising Physician Co-Signing Physician Notes I saw this patient with the physician procurement assistant, I participated in the history, physical, review of systems, and physical exam. I reviewed the medications with the patient and the physician procurement assistant and helped reconcile the medications. I helped take a detailed family and social history as well. I formulated the assessment and plan personally with the physician procurement assistant and went over it with the patient. ROS-No Headache, No Visual Changes, No Nausea, No Vomiting, No Fever, No Chills, No Neck Pain or Stiffness, No Chest Pain, No Palpitations, No SOB, No BELL, No Cough, No Sputum, No Wheezing, No Abdominal Pain, No Diarrhea, No Hematemesis, No Hemoptysis, No Unexpected Weight Loss, No Flank pain, No Melena, No Hematochezia, No Frequency, No Urgency, No Burning, No Hematuria, No Rashes, No Diaphoresis. Appetite is Normal, +dizziness and Palpitations Physical Exam Gen-AAO x 3, NAD, Afebrile Head-NCAT, EOMI, PERRLA, Anicteric Sclera, No Posterior Pharyngeal Erythema Neck-Supple, No JVD, No Thyromegaly, No Masses, No LAD, No Bruits Lungs-Clear to Auscultation Bilaterally, No Rales, No Rhonchi, No Wheezing, No Crepitus Chest-Irreg, No S4, +S1, +S2, No S3, No Murmurs, No Rubs, No Gallops, + Ectopy Abdomen-Soft, Bowel Sounds Present, Non Tender, Non Distended, No Hepatomegaly, No Splenomegaly, No Palpable Masses, No Rebound, No Rigidity, No Guarding Musculoskeletal-Full Range of Motion Bilaterally, No CVAT Extremities-No Cyanosis, No Clubbing, No Edema Nuero-Cranial Nerves II-XII grossly intact, Motor WNL, DTRs WNL, Strength WNL, Non Focal Psych-Normal Mood (1) Hypertension Hypertension type: essential hypertension Qualified Code(s): I10 - Essential (primary) hypertension
[2018-10-21 13:02] LABS: Basophils # (auto) 0.04 K/uL (0-0.2); Basophils % (auto) 0.3 %; Eosinophils # (auto) 0.02 K/uL (0-0.5); Eosinophils % (auto) 0.1 %; Hematocrit (blood only) 43.9 % (37-47); Immature Granulocytes # (auto) 0.05 K/uL (0.00-0.02); Immature Granulocytes % (auto) 0.3 %; Lymphocytes # (auto) 1.94 K/uL (1.2-3.4); Lymphocytes % (auto) 12.6 %; Mean Corpuscular Volume 89.4 fL (80-100); Monocytes % (auto) 6.5 %; Neutrophils # (auto) 12.36 K/uL (1.4-6.5); Neutrophils % (auto) 80.2 %; Platelet Count 378 K/uL (130-400); RDW Coefficient of Variation 13.5 % (11.5-14.5); RDW Standard Deviation 44.1 fL (36.4-46.3); Red Blood Count 4.91 M/uL (4.2-5.4); White Blood Count 15.41 K/uL (4.8-10.8)
[2018-10-21 13:11] LABS: Mean Corpuscular Hgb Conc 34.2 g/dL (32-36)
[2018-10-21 13:44] LABS: Alanine Aminotransferase 22 U/L (12-78); Albumin Level 3.7 gm/dl (3.4-5.0); Aspartate Aminotransferase 9 U/L (15-37); BUN Creatinine Ratio 28.6 (10-20); Blood Urea Nitrogen 20 mg/dl (7-18); Calcium 8.7 mg/dl (8.5-10.1); Carbon Dioxide 24 mmol/L (21-32); Chloride 105 mmol/L (98-107); Creatinine Clr Calc Pharmacy 97.3 ml/min; Est GFR (African American) 106.5; Est GFR (Non-African American) 91.9; Glucose 106 mg/dl (70-99); Magnesium 2.4 mg/dl (1.8-2.4); Potassium 4.3 mmol/L (3.5-5.1); Sodium 137 mmol/L (136-145)
[2018-10-21 13:55] LABS: Alkaline Phosphatase 73 U/L (45-117); Bilirubin,Total 0.6 mg/dl (0.2-1); Globulin 3.8 gm/dl (2.5-4.0); Total Protein 7.5 gm/dl (6.4-8.2); Troponin I < 0.015 ng/ml (0-0.045)
[2018-10-21] MEDS ORDERED: SODIUM CHLORIDE 0.9% 1000ML 1,000 ML IV SCH (14:15)
[2018-10-21] MEDS ORDERED: SOTALOL HCL 80 MG TAB PO ONE (15:02)
--- NOTE | 2018-10-21 15:13 | Cardiology Consultation ---
Date of Consultation October 21, 2018 Assessment & Plan (1) Atrial fibrillation with RVR: Discussed management in detail with the patient recommended initiation of antiarrhythmic therapy at this time. Will discontinue metoprolol begin sotalol 80 mg twice daily with an additional dose of 40 mg p.o. now. Daily EKGs If no successful conversion with medical therapy anticipate synchronized electrical cardioversion on Sunday Patient chronically anticoagulated with apixaban without interruption Present on Admission?: Yes (2) Hypertension: Continue amlodipine (3) Sarcoidosis of lung: History of Present Illness Reason for Consultation: Atrial fibrillation Requesting Physician: Dr Gardiner Attending Physician: Sinan Kay, DO History of Present Illness Patient is a 63-year-old female with past history is notable for 1. Paroxysmal atrial fibrillation with initial diagnosis September 2016, recurrence September 2017 requiring synchronized electrical cardioversion. Patient's been on chronic anticoagulation with Eliquis 2. Hypertension 3. Pulmonary sarcoidosis Patient presents now noting approximately 2-week history of "not feeling well" has been aware of her heart rate being elevated with sense of mild tachypalpitations as well as marked fatigue. Feels a heaviness throughout her body and chest but notes distinct anginal symptoms notes no syncope or near syncope. Presented to the emergency room 2 days ago for trial of flecainide initial slowing but no resolve in atrial fibrillation. Initially felt better than noted today once again heart rates were elevated. EKG as an outpatient demonstrated atrial fibrillation with elevated ventricular response rate. Patient denies recent fevers chills or infections. Notes no history rheumatic fever scarlet fever TIA or stroke. No prior history of bradycardia arrhythmias notes no bleeding difficulties as tolerated Eliquis well. Appetite weighted been generally stable with weight up with slightly notes no headache or visual changes. Allergies Allergy/AdvReac Type Severity Reaction Status Date / Time JUAN PABLO Inhibitors AdvReac cough Verified 10/21/18 13:05 Home Medications Home Medications Medication Instructions Recorded Confirmed Type amlodipine [Norvasc] 2.5 mg PO QAM 06/24/18 10/21/18 History ascorbic acid (vitamin C) [Vitamin 1,000 mg PO QAM 06/24/18 10/21/18 History C] cholecalciferol (vitamin D3) 0 unit PO QAM 06/24/18 10/21/18 History [Vitamin D3] magnesium 0 mg PO QAM 06/24/18 10/21/18 History metoprolol succinate [Toprol XL] 100 mg PO BIDM 06/24/18 10/21/18 History potassium 0 mg PO QAM 06/24/18 10/21/18 History apixaban [Eliquis] 5 mg PO BID 10/19/18 10/21/18 History propranolol 20 mg PO DIRECTED PRN 10/19/18 10/21/18 History Patient History Medical History Hypertension (Chronic) Sarcoidosis of lung (Chronic) A-fib (Chronic) Hypomagnesemia Dyslipidemia (Chronic) Surgical History History of tonsillectomy and adenoidectomy (Chronic) History of History of lymph node biopsy Mediastinoscopy with biopsy of mediastinal node - 2012 Dr. Bravo Tubal ligation status Family History Father Myocardial infarction, Onset Age: 63 Social History Preferred Language: Syriac Communication Ability: Effective Escalator Attendant Required: No Beliefs That Will Affect Care: None marital status: Current Living Situation: Spouse current occupational status: unemployed Other Information That Helps Us Care for You: No Feels Safe at Home: Yes Safety Concerns: Feels Safe At This Time Smoking Status: Never smoker Hx Alcohol Use: No Hx Substance Use: No Review of Systems Review of Systems: All systems reviewed & are unremarkable except as noted in HPI & below Physical Exam Constitutional: WD/WN, vitals as above Eyes: PERRL, conjunctivae normal, anicteric sclerae ENMT: external ear and nose normal, oropharynx normal Neck: trachea midline, no thyromegaly Respiratory: normal respiratory effort, lungs clear to auscultation Cardiovascular: Rate/Rhythm: + irregularly irregular Heart Sounds: normal S1 and normal S2; no gallop and no murmur Palpation: normal PMI Vessels: normal carotid upstroke and radial pulses present; no JVD and no carotid bruit Extremities: no edema Gastrointestinal (Abdomen): normal bowel sounds, soft, nontender, no hepatosplenomegaly Musculoskeletal: no cyanosis or clubbing, extremities motor strength 5/5 Skin: no rashes, warm and dry Neurologic: PERRL, EOMI, accommodation nl, no face palsy, no dysarthria Psychiatric: A+Ox3, euthymic affect Results & Data Vital Signs (Past 12 Hours) Vital Signs Temp Pulse Resp BP Pulse Ox 10/21/18 12:41 36.5 C 110 H 16 124/88 93 Laboratory Results Laboratory Results - last 24 hr 10/21/18 10/21/18 12:44 12:44 WBC 15.41 H RBC 4.91 Hgb 15.0 Hct 43.9 MCV 89.4 MCH 30.5 MCHC 34.2 RDW Std Deviation 44.1 RDW Coeff of Jeff 13.5 Plt Count 378 MPV 10.0 Immature Gran % (Auto) 0.3 Neut % (Auto) 80.2 Lymph % (Auto) 12.6 [place] % (Auto) 6.5 Eos % (Auto) 0.1 Baso % (Auto) 0.3 Immature Gran # (Auto) 0.05 H Neut # (Auto) 12.36 H Lymph # (Auto) 1.94 [place] # (Auto) 1.00 H Eos # (Auto) 0.02 Baso # (Auto) 0.04 Sodium 137 Potassium 4.3 Chloride 105 Carbon Dioxide 24 Anion Gap 8.0 BUN 20 H Creatinine 0.71 Est Cr Clr Drug Dosing 97.3 Est GFR ( Amer) 106.5 Est GFR (Non-Af Amer) 91.9 BUN/Creatinine Ratio 28.6 H Glucose 106 H Calcium 8.7 Magnesium 2.4 Total Bilirubin 0.6 AST 9 L ALT 22 Alkaline Phosphatase 73 Troponin I < 0.015 Total Protein 7.5 Albumin 3.7 Globulin 3.8 Albumin/Globulin Ratio 1.0 TSH 0.755 (1) Hypertension Hypertension type: essential hypertension Qualified Code(s): I10 - Essential (primary) hypertension
[2018-10-21] MEDS ORDERED: METOPROLOL SUCC 50MG EXT REL TAB PO SCH (17:00)
[2018-10-21] MEDS: SOTALOL HCL 80 MG TAB PO SCH (20:40)
[2018-10-21] MEDS: APIXABAN 5 MG TABLET PO SCH (21:59)
[2018-10-22 07:25] LABS: BUN Creatinine Ratio 24.5 (10-20); Calcium 8.4 mg/dl (8.5-10.1); Creatinine Clr Calc Pharmacy 100.1 ml/min; Est GFR (African American) 108.9
[2018-10-22] MEDS: APIXABAN 5 MG TABLET PO SCH ×2 (08:22→20:46)
[2018-10-22] MEDS: SOTALOL HCL 80 MG TAB PO SCH ×2 (08:22→20:46)
[2018-10-22] MEDS: ASCORBIC ACID 500 MG TAB PO SCH (09:14)
[2018-10-22] MEDS: AMLODIPINE BESYLATE 5 MG TAB PO SCH (09:14)
--- NOTE | 2018-10-22 09:44 | Cardiology Progress Note ---
Date of Service October 22, 2018 Assessment & Plan (1) Atrial fibrillation with RVR: tolerating sotalol load well QTc of 460 ms today no ventricular arrhythmias on monitor plan that if she does not spontaneously convert to sinus on her own then will proceed with cardioversion in AM of 10/23 cont Eliquis uninterrupted (2) Hypertension: controlled Continue amlodipine (3) Sarcoidosis of lung: Subjective Pt seen and examined, states that she feels well. Can tell heart rate has decreased. No further palpitations or lightheadedness. Denies cp or sob. tele reviewed: afib rates 70's-90's. Review of Systems Review of Systems: All systems reviewed & are unremarkable except as noted in HPI & below Physical Exam Physical Exam: General: Awake, alert and oriented x 3. No acute distress. HEENT: Normocephalic, atraumatic. Pupils equal, round and reactive to light and accommodation. Extraocular muscles are intact. Anicteric sclera. Moist mucous membranes. Neck: No JVD. No bruit. Cardiovascular: irregularly irregular, unable to appreciate murmur, rub or gallop. Pulmonary: Clear to auscultation bilaterally. No rales, rhonchi, or wheezing. Abdomen: Bowel sounds x 4, soft. No rebound, guarding or tenderness. No organomegaly. Extremities: No clubbing, cyanosis or edema. +2 pedal pulses bilaterally. Skin: Warm and dry. Results & Data Vital Signs (Past 12 Hours) Vital Signs Temp Pulse Resp BP Pulse Ox 10/22/18 07:07 36.5 C 77 18 134/97 96 10/22/18 04:08 36.6 C 81 18 94/73 L 96 10/21/18 22:50 36.6 C 87 20 111/83 95 (1) Hypertension Hypertension type: essential hypertension Qualified Code(s): I10 - Essential (primary) hypertension
--- NOTE | 2018-10-22 10:09 | Hospitalist Progress Note ---
Date of Service October 22, 2018 Assessment & Plan (1) Atrial fibrillation with RVR: 1) Atrial fibrillation with RVR: -History of paroxysmal A. fib, status post cardioversion in past Presented with symptomatic A. fib RVR: With shortness of breath/ palpitation Given 1 dose of flecainide in ER, with no result Started on sotalol: Given sotalol load yesterday 80 mg +40 mg p.o. Beta-thao p.o. Toprol-XL and discontinued continue with sotalol 80 mg twice daily Remains [place] [id number] Does not have any symptoms of palpitation or shortness of breath at present QTC 460 ms Appreciate input from cardiology if patient does not spontaneously convert to sinus with medication will need DC cardioversion in AM of 10/23 cardiology ordered for n.p.o. past midnight (2) Hypertension: -Blood pressure remains stable: Continue Norvasc Toprol-XL discontinued: As patient started with sotalol for rate and rhythm control (3) Sarcoidosis of lung: Chronic issue - stable from clinical perspective CODE STATUS: Full code DVT prophylaxis: On Eliquis Disposition: Expected to be discharged home when medically stable Medicine follow-up with family physician Dr. Shelly Barnes at [facility] cardiology follow-up with Dr. Ramirez at [facility] cardiology clinic [place]ive [place] [address] Does not have any symptoms, no palpitation, no dizzy spell, no shortness of breath/no chest heaviness Feels fine, patient started on sotalol given loading dose yesterday,- Continue to monitor and telemetry, Appreciate cardiology input Plan for DC cardioversion in am if patient does not convert to sinus rate controlled with medical management Physical Exam Constitutional: WD/WN, vitals as above no acute distress Eyes: PERRL, conjunctivae normal, anicteric sclerae ENMT: external ear and nose normal, oropharynx normal Neck: trachea midline, no thyromegaly Respiratory: normal respiratory effort; no respiratory distress and no labored breathing Auscultation: + crackles (Chronic secondary to sarcoidosis); no rales, no rhonchi and no wheezes Cardiovascular: Extremities: no pedal edema and no edema Irregularly irregular, rapid Gastrointestinal (Abdomen): normal bowel sounds, soft, nontender, no hepatosplenomegaly Musculoskeletal: no cyanosis or clubbing, extremities motor strength 5/5 Skin: no rashes, warm and dry Neurologic: PERRL, EOMI, accommodation nl, no face palsy, no dysarthria Psychiatric: A+Ox3, euthymic affect Results & Data Vital Signs (Past 12 Hours) Vital Signs Temp Pulse Resp BP Pulse Ox 10/22/18 07:07 36.5 C 77 18 134/97 96 10/22/18 04:08 36.6 C 81 18 94/73 L 96 10/21/18 22:50 36.6 C 87 20 111/83 95 (1) Hypertension Hypertension type: essential hypertension Qualified Code(s): I10 - Essential (primary) hypertension
[2018-10-22] MEDS ORDERED: IBUPROFEN 200 MG TAB PO PRN (15:00)
[2018-10-22] MEDS ORDERED: ACETAMINOPHEN 325 MG TAB PO PRN (15:27)
--- NOTE | 2018-10-23 08:56 | History & Physical Bridge Note ---
Date of Service October 23, 2018 History & Physical Bridge Note I have examined the patient, reviewed the History & Physical and in the interval since the performance of the History & Physical I have noted the following changes of clinical significance: no changes noted
--- NOTE | 2018-10-23 08:56 | Pre Anesthesia Assessment ---
Date of Service October 23, 2018 Pre Sedation Assessment Vital Signs Temp Pulse Pulse Resp BP Pulse Ox 10/23/18 07:39 36.7 C 88 18 122/87 95 10/23/18 04:00 36.8 C 78 18 116/79 97 10/23/18 00:00 36.6 C 84 18 106/63 96 10/22/18 19:31 36.8 C 97 H 18 113/77 93 10/22/18 18:02 110/85 10/22/18 16:00 115 H 10/22/18 15:27 36.8 C 91 H 18 123/103 H 95 10/22/18 12:00 128/83 10/22/18 11:37 36.4 C L 90 19 139/110 H 97 Pre-Sedation Airway Assessment Smoking Status: Never smoker Notes The planned sedation has been discussed with the patient. Informed Consent was obtained. I have identified the patient, determined the appropriateness of sedation and have assessed the patient immediately prior to the procedure. All medicine(s) and interventions are by my order.
--- NOTE | 2018-10-23 09:10 | Post Anesthesia Assessment ---
Date of Service October 23, 2018 Post Sedation Assessment Vital Signs Temp Pulse Pulse Resp BP Pulse Ox 10/23/18 07:39 36.7 C 88 18 122/87 95 10/23/18 04:00 36.8 C 78 18 116/79 97 10/23/18 00:00 36.6 C 84 18 106/63 96 10/22/18 19:31 36.8 C 97 H 18 113/77 93 10/22/18 18:02 110/85 10/22/18 16:00 115 H 10/22/18 15:27 36.8 C 91 H 18 123/103 H 95 10/22/18 12:00 128/83 10/22/18 11:37 36.4 C L 90 19 139/110 H 97 Post Sedation Plan On clinical assessment, the patient appears to have tolerated the sedation without complications. Patient is recovering as anticipated. Patient will continue to be monitored by nursing and may be discharged when sedation discharge criteria are met per below protocol. Upon Completions of procedure and additional 15 minutes continue every 5 minute vital signs and the P.A.R. score; then discharge to a Phase I or Fast Track to Phase II per the following guidelines: * Discharge Patient to appropriate Phase II area if PAR is 8 or greater or return to pre- procedure baseline. The post - procedure orders will be as directed. * If PAR score is less than 8 or not return to pre-procedure baseline then patient will follow Phase I monitoring till PAR is reached for Phase II. The Phase I may be done in procedure room or may call to secure a Phase I area. * If naloxone or flumazenil are used for reversal, hold in Phase I for continued monitoring from when last reversal dose was given for a minimum of 60 minutes or longer pending the nurse and/or physician discretion of patient condition before discharge to Phase II. Please call the Sedation Physician to re-evaluate and complete post-note for discharge to Phase II area. Do NOT discharge from procedure sedation or Phase 1 until post- sedation juana luation note is complete by procedure /sedation MD Sedation Discharge Instructions to be given to the patient at discharge to home.
--- NOTE | 2018-10-23 09:10 | Operative Report ---
Post Operative Report Pre & Post Diagnosis symptomatic atrial fibrillation with rvr Procedure informed consent obtained pt prepped adequate conscious sedation achieved with a total of Versed 4mg and Fentanyl 100mcg 300J of synchronized energy delivered, unsuccessful in converting to sinus a second attempt with 360J of synchronized energy was delivered with successful conversion to sinus rhy pt tolerated well no complications to be recovered in 203 per protocol start time: 856 stop time: 903 Surgeon Navjot Irvin DO [employer] Yared REEVES Estimated Blood Loss 0 Findings Consistent with Post-Op Diagnosis Specimens none Description of Procedure DC cardioversion I attest to the content of the Intraoperative Record and any orders documented therein. Any exceptions are noted below.
[2018-10-23] MEDS: ASCORBIC ACID 500 MG TAB PO SCH (10:09)
[2018-10-23] MEDS: APIXABAN 5 MG TABLET PO SCH (10:09)
[2018-10-23] MEDS: AMLODIPINE BESYLATE 5 MG TAB PO SCH (10:09)
[2018-10-23] MEDS: SOTALOL HCL 80 MG TAB PO SCH (10:09)
--- NOTE | 2018-10-23 10:15 | Cardiology Progress Note ---
Date of Service October 23, 2018 Assessment & Plan (1) Atrial fibrillation with RVR: tolerating sotalol load well QTc of 460 ms today s/p successful d/c cardioversion to sinus after 2 attempts post procedure QTc of 437ms no ventricular arrhythmias on monitor pt anxious for discharge I feel it would be acceptable to give her the evening dose of sotalol at 1500 today and check an ekg at 1600 if QTc remains acceptable, would be ok to discharge at that time pt in agreement with plan and grateful I will ask nursing to call me with ekg results d/c home on sotalol 80mg po bid (I have sent the script through [facility] to Karl Milner) eliquis 5mg po bid cont amlodipine cont propanolol prn stop metoprolol my office will call to arrange f/u with me in 1 month (2) Hypertension: controlled Continue amlodipine (3) Sarcoidosis of lung: Review of Systems Review of Systems: All systems reviewed & are unremarkable except as noted in HPI & below Physical Exam Physical Exam: Physical Exam: General: Awake, alert and oriented x 3. No acute distress. HEENT: Normocephalic, atraumatic. Pupils equal, round and reactive to light and accommodation. Extraocular muscles are intact. Anicteric sclera. Moist mucous membranes. Neck: No JVD. No bruit. Cardiovascular: Regular. No S-4. Normal S-1 and S-2. No S-3. No murmurs, rubs or gallops. Pulmonary: Clear to auscultation bilaterally. No rales, rhonchi, or wheezing. Abdomen: Bowel sounds x 4, soft. No rebound, guarding or tenderness. No organomegaly. Extremities: No clubbing, cyanosis or edema. +2 pedal pulses bilaterally. Skin: Warm and dry. Results & Data Vital Signs (Past 12 Hours) Vital Signs Temp Pulse Pulse Resp BP Pulse Ox 10/23/18 09:35 68 18 99/79 L 96 10/23/18 09:20 73 18 143/88 H 96 10/23/18 09:05 75 18 154/102 H 99 10/23/18 09:04 75 16 131/92 99 10/23/18 09:02 136 H 16 117/84 99 10/23/18 08:57 140 H 16 167/102 H 99 10/23/18 07:39 36.7 C 88 18 122/87 95 10/23/18 04:00 36.8 C 78 18 116/79 97 10/23/18 00:00 36.6 C 84 18 106/63 96 (1) Hypertension Hypertension type: essential hypertension Qualified Code(s): I10 - Essential (primary) hypertension
[2018-10-23] MEDS ORDERED: fentaNYL citrate 100 MCG/2 ML VIAL ONE (14:17)
[2018-10-23] MEDS ORDERED: MIDAZOLAM HCL 1 MG/ML 2ML VIAL ONE (14:17)
[2018-10-23] MEDS ORDERED: SOTALOL HCL 80 MG TAB PO ONE (15:00)
--- NOTE | 2018-10-23 16:33 | Discharge Summary ---
Date of Service October 23, 2018 Admission HPI Per Admitting Provider This is a 63 y/o female with a PMH of PAF, sarcoidosis of lung, HTN and dyslipidemia who presents today as a direct admission for persistent symptomatic atrial fibrillation. Pt has a history of paroxysmal atrial fibrillation first diagnosed in 2016 for which she underwent DC cardioversion. Has continued to follow with Dr. Irvin for cardiology since that time. She has had intermittent episodes of palpitations since 2016 but attributed initially to ectopy after ZIO patch monitoring. In early September 2017, pt again developed atrial fibrillation with RVR (140s) - she declined inpatient management and was started on Xarelto x 1 month and her Toprol XL was increased. Ultimately did not improve and was seen in the ED two days later - rate controlled in ED with IV beta-blockers and pt discharged. At cardiology f/u later in September, she was back in sinus rhythm. In Jan 2018, she was again seen by cardiology due to recurrent symptoms that were thought secondary to PAF. Beta-blockers increased and Eliquis was started. At most recent cardiology f/u on 09/30/18, pt was doing well on Toprol XL 100 mg BID and Eliquis 5 mg BID. She also had propranolol 20 mg to take prn for palpitations. About 1 week ago, pt developed recurrent palpitations. She tried the prn propranolol without relief. Worsening symptoms over the weekend so seen in the ED two days ago. Given flecainide without relief. Improvement with IV metroprolol so able to be discharged home. [place] better that evening and yesterday morning but recurrent palpitations yesterday afternoon and evening. [place] even worse this AM - tried dose of propranolol without relief. Seen in PCP office and had EKG done. Dr. Vázquez spoke with Dr. Irvin who recommended admission for additional IV medication therapy. Pt states that she wants to avoid cardioversion if possible. She notes occasional lightheadedness, particularly with position changes. Only lasts a few seconds. She admits that she is likely dehydrated - had a headache last week that responded to increasing her fluids. She has been out working in the heat in the past few days. Doesn't drink water but rather only caffeine-free diet Pepsi. No recent illnesses. Denies unusual bruising or bleeding since being on the Eliquis. She denies significant caffeine intake. Prior Cardiac Testing: One week ZIO patch performed April 2017 showed symptomatic ventricular and supraventricular ectopy. No sustained arrhythmias. No episodes of atrial fibrillation. Exercise stress echocardiogram performed 05/18/2017 was read as nonischemic with sinus rhythm throughout the study. Exercise capacity is average exercising 6 minutes and 7 seconds. Resting study showed normal LV chamber size with borderline concentric LVH, normal LV systolic function, EF 55-59% with grade 2 diastolic dysfunction. No significant valvular disease. Admission Exam Per Admitting Provider Constitutional: WD/WN, vitals as above no acute distress Eyes: PERRL, conjunctivae normal, anicteric sclerae ENMT: external ear and nose normal, oropharynx normal Neck: trachea midline Respiratory: normal respiratory effort, lungs clear to auscultation Auscultation: no rales, no rhonchi and no wheezes Cardiovascular: Rate/Rhythm: + tachycardic and + irregularly irregular Vessels: no JVD and no carotid bruit Extremities: normal capillary refill; no calf tenderness and no pedal edema Gastrointestinal (Abdomen): Inspection/Auscultation: normal bowel sounds; abdomen not distended Percussion/Palpation: abdomen soft; abdomen nontender Musculoskeletal: Head/Neck/Chest: normocephalic, head atraumatic and neck supple Extremities: no cyanosis and no clubbing Skin: no rashes, warm and dry no jaundice Neurologic: moves all extremities; no focal motor deficits Speech / Cognition: normal speech Psychiatric: A+Ox3, euthymic affect Principal Diagnosis Atrial fibrillation Discharge Data Allergies Allergy/AdvReac Type Severity Reaction Status Date / Time JUAN PABLO Inhibitors AdvReac cough Verified 10/21/18 13:05 Consultations 10/21/18 12:34 Consult Cardiology Routine Procedures Performed Operation Date: 10/23/18 09:00 Actual Procedures p Cardioversion(Not Applicable) - Navjot Irvin DO Hospital Course (1) Atrial fibrillation with RVR: (2) Hypertension: (3) Sarcoidosis of [age]-year-old female with paroxysmal atrial fibrillation with initial diagnosis September 2016, and a recurrence in September 2017 requiring synchronized electrical cardioversion, presented with two weeks of "not feeling well." She has felt her heart rate elevated and has picked up on mild tachypalpitations and was reporting marked fatigue. She noted a heaviness throughout her body and chest but denied any syncope. She originally presented to the emergency room 2 days prior to admission for a trial of flecainide which helped somewhat but did not resolve the atrial fibrillation. She was not found to have any infection present. She has been tolerating her Eliquis well. She was admitted to the Hospitalist service and [facility] Cardiology was consulted. Metoprolol was discontinued and sotalol 80 mg twice daily was instituted. She was monitored on telemetry but remained in atrial fibrillation. On 10/23 she underwent a synchronized cardioversion with successful conversion to sinus rhythm. She remained in sinus rhythm throughout the remainder of her hospitalization. She was kept on telemetry for the minimum monitoring time required for sotalol initiation and did well. At time of discharge she was hemodynamically stable and afebrile and tolerating p.o. She was mentating and ambulating at baseline. A [id number] examination was performed revealing a well-appearing female in no acute distress with a heart exam revealing S1, S2 heard without murmurs, gallops or rubs. She was euvolemic on exam without pedal edema or evidence of JVD. Lungs were clear to auscultation bilaterally with no overt respiratory distress. Abdomen was soft and nontender. Skin was warm and dry. She was discharged in stable condition with close primary care follow-up recommended. Total Time Total Time Spent Total Time Spent (In Minutes): 60 Total Time Includes: Examination of the Patient, Discharge Planning, Medication Reconciliation and Communication With Other Providers Discharge Plan Discharge Items Patient Disposition: Home - Self-Care Reason For Visit: AFIB Discharge Diagnosis: atrial fibrillation Condition: Good Discharge Goals: Improve disease control Activity: Resume your previous activity Non-emergency contact: Primary Care Provider Call non-emergency contact if: you have any medication questions, your symptoms worsen, your pain is not controlled, your pain is concerning for you and you have a fever Follow-up/Referrals: Katiuska Vázquez MD [Primary Care Provider] - Diet: Heart Healthy Addtl Provider Instructions: Please take all medications as instructed on discharge list below. New medications: Sotalol for maintaining normal heart rhythm Please stop taking metoprolol. You will receive a call from [facility] cardiology scheduling you with Dr. Irvin for 1 month follow-up. It is recommended that you follow-up with your primary care doc within one week of discharge. You are scheduled to see Dr. Vázquez on 10/28 at 12:45pm. Please bring all paperwork from discharge with you to this appointment. It was a pleasure taking care of you! Please call if you have any questions or problems. You can reach a [facility] hospitalist on duty at [facility] 24 hours a day by calling [phone]. Take care of yourself. Daria Herman, DO [facility] Hospitalist Prescriptions: New sotalol 80 mg Tablet 80 mg PO BID Qty: 60 RF: 1 Continued ascorbic acid (vitamin C) [Vitamin C] 1,000 mg Tablet 1,000 mg PO QAM RF: 0 amlodipine [Norvasc] 2.5 mg Tablet 2.5 mg PO QAM RF: 0 potassium 99 mg Tablet PO QAM RF: 0 magnesium 250 mg Tablet PO QAM RF: 0 cholecalciferol (vitamin D3) [Vitamin D3] 1,000 unit Capsule PO QAM RF: 0 propranolol 20 mg Tablet 20 mg PO DIRECTED PRN (Reason: Increased Heart Rate) RF: 0 Eliquis 5 mg Tablet 5 mg PO BID RF: 0 Discontinued metoprolol succinate [Toprol XL] 100 mg Tablet Extended Release 24 Hr 100 mg PO BIDM RF: 0 Stand-Alone Forms: My [facility], Work/School Release (Inpt) Krames/Other Patient Handouts: AFL/Afib, Cardioversion Dc, Stroke Prevent Live W Atrial Fib Discharge Orders: Discharge Order (Routine); Ordered 10/23/18 Ordered By: Daria Herman Admission Data Admit Date/Time: 10/21/18 12:18 Attending Provider: Daria Herman Admit Provider: Sinan Kay Primary Care Provider: Katiuska Vázquez Other Providers: Souleymane Guerra Gary Service: Telemetry Other Interventions: Discharge Summary Assessment (RN) Last Done: 10/23/18 17:55 DC Date/Time DO NOT enter until pt leaves facility: 10/23/18 17:55
== END 2018-10-23 17:55 | disposition home or self-care (01) | DRG 310 ==
LOC: SUATTDRO 12:18 → 2E 12:18